=== PATIENT | female | born 1965 | race Caucasian/White ===

== ENCOUNTER 2018-07-25 09:50 | Outpatient (REF) | payer MEDICARE, MEDICAID, SELFPAY ==
[2018-07-25 13:21] LABS: Hemoglobin A1C 6.2 % (4.5-6.2)
[2018-07-25 13:23] LABS: ALT 66 U/L (12-78); AST 38 U/L (15-37); Albumin 3.5 g/dL (3.4-5.0); Alkaline Phosphatase 241 U/L (46-116); Anion Gap 10.4 mmol/L (3-11); BUN 15 mg/dL (7-18); Bilirubin, Total 0.3 mg/dL (0.2-1.0); CO2 27.6 mmol/L (21.0-32.0); CREATININE 0.93 mg/dL (0.55-1.02); Calcium 7.9 mg/dL (8.5-10.1); Chloride 103 mmol/L (98-107); Cholesterol 189 mg/dL (50-200); Glucose 126 mg/dL (70-100); HDL Cholesterol 48 mg/dL (40-60); LDL CHOLESTEROL 115 mg/dL (<100); Potassium 4.4 mmol/L (3.5-5.1); Sodium 141 mmol/L (136-145); Total Protein 6.5 g/dL (6.4-8.2); Triglyceride 134 mg/dL (30-150)
== END 2018-07-25 10:10 ==
LOC: NCHCN 09:50
PROVIDERS: PCP Nurse Practitioner Family; Visit Provider Nurse Practitioner Family
DX: E11.9 Type 2 diabetes mellitus without complications (principal)
CPT/HCPCS: 80053; 80061; 83721; 83036

== ENCOUNTER 2019-01-24 13:02 | Emergency (ER) | payer MEDICARE, MEDICAID, SELFPAY ==
[2019-01-24 13:06] VITALS: BP 155/86; PULSE 83; RESP 16; TEMP 36.5; O2SAT 96
--- NOTE | 2019-01-24 13:27 | ED.GENADUL_ITS ---
Discharge Plan Disposition Patient Disposition: HOME Condition: Stable Discharge Details Chief Complaint: Laceration Clinical Impression: Laceration Primary Care Provider: Jena Guzman ED Provider: Lisa Alatorre Home Meds and New Rx's Prescriptions: Continued trazodone 100 MG tablet 200 mg PO HS RF: 0 lisinopril 10 MG tablet 10 mg PO HS RF: 0 simvastatin 20 MG tablet 20 mg PO QPM RF: 0 omeprazole 20 MG capsule,delayed release(DR/EC) 20 mg PO HS RF: 0 montelukast 10 MG tablet 10 mg PO HS RF: 0 mirtazapine [Remeron] 15 MG tablet 15 mg PO HS RF: 0 ibuprofen 800 MG tablet 800 mg PO ONCE RF: 0 Advair Diskus 1 EACH blister with device 1 puff Inhalation BID RF: 0 albuterol sulfate [ProAir HFA] 8.5 GM HFA aerosol inhaler 2 puff Inhalation PRN RF: 0 metformin 500 MG tablet extended release 24hr 1,000 mg PO HS RF: 0 albuterol sulfate 2.5 MG/3 ML solution for nebulization 3 ml UPD Q3H PRN PRN (Reason: Shortness Of Breath) Qty: 20 RF: 0 Discharge Instructions Instructions: Laceration (ED), Skin Adhesive Care (ED) Additional Instructions: Please return to the emergency department immediately if you develop any new or worsening symptoms or if you become otherwise concerned. It is extremely important that you make an appointment to be seen in follow-up this visit as soon as possible by your primary care doctor. Referrals: Jena Guzman [Primary Care Provider] - Discharge Data Discharge Date/Time-TO BE ENTERED AT DEPARTURE: 01/24/19 14:35 Medical Decision Making Annemarie Pizano is a 53-year-old woman who presented to the emergency department with superficial laceration to her right fourth digit sustained using a kitchen mandolin. On exam patient is very well and nontoxic appearing. There is a very superficial laceration to the lateral aspect of the distal phalanx of her right fourth digit and no other injury. Full range of motion of the digit. The digit is neurovascularly intact. Exam/history is not consistent with bony injury, tendon injury. Plan for irrigation, Dermabond, tetanus (last tetanus 2008). Wound repaired by medical student with dermabond under my direct supervision. I had a lengthy discussion with the patient regarding return to emergency department precautions and importance of outpatient follow-up with her PCP. Patient verbalized understanding of the plan and is amenable. All questions were answered. Medical Records Medical records reviewed: Yes I reviewed the patient's medical records. HPI General Mode of arrival: ambulatory . Date/Time Provider Initiated Documentation: 01/24/19 13:27 . Limitations to Documentation: no limitations . Information obtained by: patient . HPI Narrative: Annemarie Pizano is a 53-year-old woman with history of hypertension, GERD, anxiety, high cholesterol presenting to the emergency department laceration. Patient reports that just prior to arrival she cut her right fourth digit while using a kitchen mandolin. She denies any other injury. She reports that there was minimal bleeding. Patient reports that her son has Asperger syndrome and was very concerned about her injury, and she came to the emergency department to calm him down but otherwise would not have sought medical attention. She denies any pain. Patient reports that she is previously in her usual state of health. Related Data Home Medications Medication Instructions Recorded Confirmed lisinopril 10 mg PO HS 06/02/13 01/24/19 trazodone 200 mg PO HS 06/02/13 01/24/19 mirtazapine [Remeron] 15 mg PO HS 07/12/13 01/24/19 montelukast 10 mg PO HS 07/12/13 01/24/19 omeprazole 20 mg PO HS 07/12/13 01/24/19 simvastatin 20 mg PO QPM 07/12/13 01/24/19 ibuprofen 800 mg PO ONCE 11/01/13 01/24/19 Advair Diskus 1 puff INHALATION BID 06/19/14 01/24/19 albuterol sulfate [ProAir HFA] 2 puff INHALATION PRN 06/19/14 01/24/19 metformin 1,000 mg PO HS 10/25/16 01/24/19 albuterol sulfate 3 ml UPD Q3H PRN PRN #20 vial 02/14/17 01/24/19 Previous Rx's Medication Instructions Recorded albuterol sulfate 3 ml UPD Q3H PRN PRN #20 vial 02/14/17 Allergies Allergy/AdvReac Type Severity Reaction Status Date / Time latex Allergy Intermediate Skin Rash Unverified 01/24/19 13:08 miconazole [From Monistat 3] Allergy Unknown increased Unverified 01/24/19 13:08 vaginal itching General Stated Complaint: Laceration BENTLEY: 4 Review of Systems Review of Systems Constitutional: denies fevers Eyes: denies eye pain ENT: denies facial pain, dental pain, sore throat Cardiovascular: denies chest pain Respiratory: denies SOB GI: denies abdominal pain, vomiting, diarrhea : denies flank pain MSK: denies back pain, neck pain, arthralgias, myalgias Skin: Reports wound as per HPI Neuro: denies headaches, numbness, weakness PFSH Surgical History Colonoscopy - IV Sedation (10/25/16) Shoulder Manipulation Social History Smoking/Tobacco Use Status: Current every day Drug use: Never Do you feel safe in your relationship?: Yes Exam Narrative Exam Narrative: Constitutional: well and [id number], pleasant, conversing normally HENT: head atraumatic/normocephalic/normal inspection, mucous membranes moist Eyes: conjunctiva normal, sclera normal, pupils 3mm b/l Neck: no stridor, normal ROM, trachea midline Resp: normal work of breathing Cardio: normal rate, normal rhythm Skin: warm, dry, normal color, no rash Neuro: alert, not altered, grossly non-focal, normal tone Ext: Right fourth digit with very superficial laceration to the lateral aspect of the distal phalanx, no bleeding. Brisk cap refill. Does not cross the joint. Sensation intact. Psych: normal mood, normal affect, normal behavior Course Vital Signs Temperature 36.5 C 01/24/19 13:06 Pulse 83 01/24/19 13:06 Respiratory Rate 16 01/24/19 13:06 Blood Pressure 155/86 H 01/24/19 13:06 Pulse Oximetry 96 01/24/19 13:06 Temperature 36.5 C 01/24/19 13:06 Temperature Source Temporal Artery Scan 01/24/19 13:06 Pulse 83 01/24/19 13:06 Respiratory Rate 16 01/24/19 13:06 Respiratory Effort Non-Labored 01/24/19 13:07 Blood Pressure 155/86 H 01/24/19 13:06 Pulse Oximetry 96 01/24/19 13:06 Oxygen Delivery Method Room Air 01/24/19 13:06 Oxygen Flow Rate 0 01/24/19 13:06 Pain Level 7 01/24/19 13:06 Procedures Laceration Laceration 1: Site: hand Description: linear Depth: simple, single layer Pre-repair: irrigated extensively (Under pressure)
== END 2019-01-24 14:35 | disposition home or self-care (01) ==
PROVIDERS: Emergency Provider Student in an Organized Health Care Education/Training Program; PCP Nurse Practitioner Family
DX: S61.218A Laceration without foreign body of other finger without damage to nail, initial encounter (principal); W26.8XXA Contact with other sharp object(s), not elsewhere classified, initial encounter; E11.9 Type 2 diabetes mellitus without complications; I10 Essential (primary) hypertension; F17.210 Nicotine dependence, cigarettes, uncomplicated
CPT/HCPCS: 12001; 90471

== ENCOUNTER 2019-07-26 11:51 | Outpatient (REF) | payer MEDICARE, MEDICAID, SELFPAY ==
--- NOTE | 2019-07-26 10:45 | PAPFT_PTH ---
PATIENT: Annemarie Pizano LOC: [facility] U#:[id number] AGE/SX: 54/F ROOM: RE07/26/[address]: Bonilla Reyes : 1965 BED: DIS: 07/26/2019 SPEC #: [id number] RECD: 07/27/19 13:03 STATUS: LI RECarlton #: [id number] KATEY: 07/26/19 10:[address]: Bonilla Reyes DEPT: [facility] Cytology RECD BY: Trinity Sy Tissues: 1 - CX/ENDOCX FOR PAP SMEARS Procedures: PAP THIN PREP/UVM Screening HPV DNA PROBE Comments: [id number]
== END 2019-07-26 12:11 ==
LOC: NCHCN 11:51
PROVIDERS: PCP Nurse Practitioner Family; Visit Provider Nurse Practitioner Family
DX: Z12.4 Encounter for screening for malignant neoplasm of cervix (principal); Z11.51 Encounter for screening for human papillomavirus (HPV)
CPT/HCPCS: 88142; 87624

== ENCOUNTER 2019-08-08 08:54 | Outpatient (CLI) | payer MEDICARE, MEDICAID, SELFPAY ==
[2019-08-08 09:17] LABS: HCT 40.9 % (36.0-46.0); Mean Corp. HGB Concentration 31.8 g/dL (32.0-36.0); Mean Corpuscular Hemoglobin 29.4 pg (27.0-33.0); Mean Corpuscular Volume 92.5 fL (80-95); Mean Platelet Volume 9.9 fL (8.0-11.0); Platelet Count 209 x1000/uL (130-400); RBC 4.42 m/cumm (4.00-5.20); RBC Distribution Width 13.4 % (11.7-14.6); White Blood Cell Count 8.47 k/cumm (4.4-10.8)
[2019-08-08 09:27] LABS: Bilirubin Negative (Negative); Blood Negative (Negative); Clarity Clear (Clear); Glucose Negative (Negative); Ketones Negative (Negative); Leukocyte Esterase Trace (Negative); Nitrite Negative (Negative); Urobilinogen 0.2 EU/dL (Up TO 0.2); pH 5.5 (5-8)
[2019-08-08 10:04] LABS: PROTEIN 35.5 mg/dL
[2019-08-08 10:07] LABS: COMMENT (LAB VIEW ONLY) 124.11 mg/dL; Microalb ug/mg Crea 63.5 ug/mg Cr
[2019-08-08 10:08] LABS: ALT 113 U/L (14-59); AST 55 U/L (15-37); Albumin 3.7 g/dL (3.4-5.0); Alkaline Phosphatase 254 U/L (46-116); Anion Gap 9.8 mmol/L (3-11); BUN 16 mg/dL (7-18); Bilirubin, Total 0.4 mg/dL (0.2-1.0); CO2 29.2 mmol/L (21.0-32.0); CREATININE 0.73 mg/dL (0.55-1.02); Calcium 8.3 mg/dL (8.5-10.1); Calculated LDL 128 mg/dL; Chloride 103 mmol/L (98-107); Cholesterol 207 mg/dL (50-200); Glucose 115 mg/dL (70-100); HDL Cholesterol 51 mg/dL (40-60); Potassium 4.5 mmol/L (3.5-5.1); Sodium 142 mmol/L (136-145); Triglyceride 141 mg/dL (30-150)
[2019-08-08 10:11] LABS: COMMENT (LAB VIEW ONLY) 125.75 mg/dL; Prot/Crea Ur Ratio 0.28
[2019-08-08 10:12] LABS: Bacteria Few HPF (Negative); C & S Indicated? No/Sq. Contamination; Casts Negative LPF (Negative); Crystals Negative HPF (Negative); Epithelial Cells Moderate HPF (Negative); Mucus Negative (Negative); RBC 0-2 (0-2)
== END 2019-08-08 09:14 ==
PROVIDERS: PCP Nurse Practitioner Family; Visit Provider Nurse Practitioner Family
DX: E11.9 Type 2 diabetes mellitus without complications (principal); I10 Essential (primary) hypertension; E78.5 Hyperlipidemia, unspecified
CPT/HCPCS: 36415; 80053; 80061; 85027; 81003; 81015; 82043; 82565; 82570; 84156

== ENCOUNTER 2019-09-18 01:46 | Outpatient (CLI) | payer MEDICARE, MEDICAID, SELFPAY ==
--- NOTE | 2019-09-18 13:23 | DI.MAMMO_ITS ---
EXAM: MG MAMMO SCREENING CLINICAL HISTORY: SCREENING, [facility],Z00.00 TECHNIQUE: Bilateral full field digital CC and MLO mammographic images were obtained with 3D tomosyn thesis and utilizing computer aided detection (CAD). COMPARISON: Available for comparison. FINDINGS: Masses/Architectural Distortion: None seen. Microcalcifications: No suspicious pleomorphic-type are seen. Skin Thickening/Nipple Retraction: None. IMPRESSION: 1. No significant interval change with no specific features of malignancy noted. 2. Unless there is more urgent need, screening mammography is recommended, as per [place] [employer] guidelines. ACR BI-RAD Category- 1 Negative Breast Density - Category B - Scattered areas of fibroglandular density A negative radiographic report should not delay biopsy if a dominant or clinically suspicious mass is present. Up to ten percent of cancers are not identified on mammography. A negative report may reinforce clinical impression. Adenosis and dense breasts may obscure an underlying neoplasm. False positive reports average 6 to 10%.
== END 2019-09-18 02:06 ==
PROVIDERS: PCP Nurse Practitioner Family; Visit Provider Nurse Practitioner Family
DX: Z12.31 Encounter for screening mammogram for malignant neoplasm of breast (principal)
CPT/HCPCS: 77063; 77067

== ENCOUNTER 2020-01-25 15:12 | Outpatient (REF) | payer MEDICARE, MEDICAID, SELFPAY ==
[2020-01-25 19:47] LABS: Calculated LDL 111 mg/dL (<100); Cholesterol 187 mg/dL (<200); HDL Cholesterol 43 mg/dL (40-60); Triglyceride 168 mg/dL (<150)
[2020-01-28 11:38] LABS: HIV-1/2 Ag & Ab Screen Negative (Negative)
== END 2020-01-25 15:32 ==
LOC: NCHCN 15:12
PROVIDERS: PCP Nurse Practitioner Family; Visit Provider Nurse Practitioner Family
DX: E11.9 Type 2 diabetes mellitus without complications (principal); E78.5 Hyperlipidemia, unspecified; Z11.4 Encounter for screening for human immunodeficiency virus [HIV]
CPT/HCPCS: 80061; 87389

== ENCOUNTER 2020-08-28 15:06 | Outpatient (REF) | payer MEDICARE, MEDICAID, SELFPAY ==
[2020-08-28 16:05] LABS: HCT 37.2 % (36.0-46.0); HGB 12.3 g/dL (11.2-15.7); MCH 29.7 pg (27.0-33.0); MCHC 33.1 % (32.0-36.0); MCV 89.9 fL (80-95); MPV 10.6 fL (8.0-11.0); Platelet Count 208 10^3/uL (130-400); RBC 4.14 10^6/uL (3.93-5.22); RDW 13.3 % (11.7-14.6); RDW-SD 43.8 fL
[2020-08-28 17:22] LABS: ALT 87 U/L (14-59); AST 46 U/L (15-37); Albumin 4.1 g/dL (3.4-5.0); Alkaline Phosphatase 251 U/L (46-116); BUN 15 mg/dL (7-18); Bilirubin, Total 0.6 mg/dL (0.2-1.0); Calcium 8.1 mg/dL (8.5-10.1); Calculated LDL 102 mg/dL (<100); Chloride 101 mmol/L (98-107); Cholesterol 180 mg/dL (<200); Glucose 130 mg/dL (74-106); HDL Cholesterol 46 mg/dL (40-60); Sodium 140 mmol/L (136-145); Total Protein 7.1 g/dL (6.4-8.2); Triglyceride 163 mg/dL (<150)
== END 2020-08-28 15:26 ==
LOC: NCHCN 15:06
PROVIDERS: PCP Nurse Practitioner Family; Visit Provider Nurse Practitioner Family
DX: I10 Essential (primary) hypertension (principal); E78.5 Hyperlipidemia, unspecified; E11.9 Type 2 diabetes mellitus without complications; R94.5 Abnormal results of liver function studies; Z68.30 Body mass index [BMI] 30.0-30.9, adult
CPT/HCPCS: 80053; 80061; 85027

== ENCOUNTER 2020-09-11 01:44 | Outpatient (CLI) | payer MEDICARE, MEDICAID, SELFPAY ==
--- NOTE | 2020-09-11 | DI.CTLCSR_ITS ---
EXAM: CT CHEST LUNG CANCER SCREEN CLINICAL HISTORY: SCREENING FOR LUNG CA, [employer]MER [employer], Z87.891 TECHNIQUE: Imaging Protocol: Axial computed tomography images with coronal and sagittal reformatted images were created and reviewed COMPARISON: CT NECK AND CHEST WITH CONTRAST from 04/07/2017 FINDINGS: Tracheobronchial tree: Patent where visualized. Mediastinum and Jennifer: No dominant adenopathy or fluid collection. Pulmonary parenchyma: No consolidation or dominant measurable mass. Mild scarring greatest in the upp er lobes. No significant emphysematous changes. Lung Nodules: None. Pleura: No effusion or pneumothorax. Heart: The heart is not dilated. Minimal coronary artery calcifications are seen. Aorta: Thoracic aorta non-dilated. Upper abdomen: Unremarkable. Bones: Mild degenerative disc changes. Soft Tissues: Unremarkable. IMPRESSION: Mild apical scarring. Lung RADS Cat 1 - Negative: No nodules and definitely benign nodules Lung-RADS 1.0 CATEGORIES: Category 0 - Prior chest CT exam(s) being located for comparison. Category 1 - Annual screening in 12 months. No nodules or definitely benign nodules. Category 2 - Annual screening in 12 months. Benign appearance. Nodules with low likelihood of becomin g active cancer. Category 3 - 6-month follow-up. Probably benign. Short-term follow-up suggested. Nodules with low lik elihood of becoming active cancer. Category 4A - 3-month follow-up and CT/PET if >8 mm in size. Suspicious finding. Findings which requi re additional testing. Category 4B - Findings which require additional testing and tissue sampling. Suspicious finding. C Added to Any of the Above - History of prior lung cancer screening. S Added to Any of the Above - Significant unexpected other finding. RADIATION DOSE DELIVERED: 72.22mGy.cm Total DLP DATA REPOSITORY: All CT scans at this facility are submitted to the National Radiology Data Registry (NRDR) Dose Index Registry (DIR) with the [employer] (ACR). RADIATION OPTIMIZATION: All CT scans at this facility use at least one of these dose optimization te chniques: automated exposure control; mA and/or kV adjustment per patient size (includes targeted exa ms where dose is matched to clinical indication); or iterative reconstruction.
== END 2020-09-11 02:04 ==
PROVIDERS: PCP Nurse Practitioner Family; Visit Provider Nurse Practitioner Family
DX: Z87.891 Personal history of nicotine dependence (principal)
CPT/HCPCS: G0297

== ENCOUNTER 2020-10-20 00:54 | Outpatient (CLI) | payer MEDICARE, MEDICAID, SELFPAY ==
--- NOTE | 2020-10-20 | DI.MRI_ITS ---
EXAM: MR LUMBAR SPINE WO INDICATION: FAILED PT, SCIATICA, M54.30. COMPARISON: No exams were available for comparison TECHNIQUE: MR examination of the lumbosacral spine was performed according to the usual protocol. FINDINGS: Lumbosacral spine MRI was performed according to the usual protocol. No bony signal abnormality seen . Conus medullaris appears intact. Intervertebral disc signal appears intact except for some loss of disc signal at L5-S1. There is a b road-based central and left paracentral disc herniation at L5-S1 without evident focal neural impinge ment. No evidence of neural foraminal stenosis or central canal spinal stenosis at this level. The remainder of the lower thoracic and lumbar spine is unremarkable in appearance with no disc herni ation, central canal spinal stenosis, or neural foraminal stenosis. IMPRESSION: Moderate-sized central and left lateral broad-based disc herniation at L5-S1, no gross neural impinge ment identified.
== END 2020-10-20 01:14 ==
PROVIDERS: PCP Nurse Practitioner Family; Visit Provider Nurse Practitioner Family
DX: M51.17 Intervertebral disc disorders with radiculopathy, lumbosacral region (principal)
CPT/HCPCS: 72148

== ENCOUNTER 2020-10-21 18:50 | Outpatient (REF) | payer MEDICARE, MEDICAID, SELFPAY ==
[2020-10-21 21:36] LABS: Clarity Clear (Clear)
[2020-10-21 21:37] LABS: Leukocyte Esterase Negative (Negative); Nitrite Negative (Negative); Specific Gravity >= 1.030 (1.005-1.025)
[2020-10-21 21:38] LABS: Bilirubin Negative (Negative); Blood Negative (Negative); Glucose Negative (Negative); Ketones Negative (Negative); Urobilinogen 0.2 EU/dL (Up TO 0.2)
[2020-10-21 21:40] LABS: Bacteria Few HPF (Negative); C & S Indicated? No/Sq. Contamination; Casts Negative LPF (Negative); Crystals Negative HPF (Negative); Epithelial Cells Moderate HPF (Negative); Mucus Negative (Negative); RBC Negative HPF (0-2)
== END 2020-10-21 19:10 ==
LOC: NCHCN 18:50
PROVIDERS: PCP Nurse Practitioner Family; Visit Provider Nurse Practitioner Family
DX: R80.9 Proteinuria, unspecified (principal); L29.8 Other pruritus
CPT/HCPCS: 81003; 81015; 87480; 87510; 87660

== ENCOUNTER 2020-10-30 13:57 | Outpatient (REF) | payer MEDICARE, MEDICAID, SELFPAY ==
[2020-10-30 18:30] LABS: Bilirubin Negative (Negative); Blood Negative (Negative); Clarity Cloudy (Clear); Glucose 250 mg/dL (Negative); Ketones Negative (Negative); Leukocyte Esterase Negative (Negative); Nitrite Negative (Negative); Specific Gravity >= 1.030 (1.005-1.025); Urobilinogen 0.2 EU/dL (Up TO 0.2)
[2020-10-30 18:43] LABS: Bacteria Rare HPF (Negative); Epithelial Cells Negative HPF (Negative); RBC 0-2 HPF (0-2); WBC 0-2 HPF (0-5)
[2020-10-30 18:44] LABS: C & S Indicated? No; Casts Negative LPF (Negative); Crystals Many Amorphous HPF (Negative); Mucus Trace (Negative)
== END 2020-10-30 14:17 ==
LOC: NCHCN 13:57
PROVIDERS: PCP Nurse Practitioner Family; Visit Provider Nurse Practitioner Family
DX: R80.9 Proteinuria, unspecified (principal)
CPT/HCPCS: 81003; 81015

== ENCOUNTER 2020-11-07 17:14 | Outpatient (REF) | payer MEDICARE, MEDICAID, SELFPAY ==
[2020-11-07 14:49] LABS: Bilirubin Negative (Negative); Blood Moderate (Negative); Clarity Cloudy (Clear); Glucose Negative (Negative); Ketones Negative (Negative); Leukocyte Esterase Small (Negative); Nitrite Negative (Negative); Specific Gravity >= 1.030 (1.005-1.025); Urobilinogen 0.2 EU/dL (Up TO 0.2); pH 5.5 (5-8)
[2020-11-07 15:11] LABS: WBC >50 HPF (0-5)
[2020-11-07 15:12] LABS: Bacteria Moderate HPF (Negative); C & S Indicated? No/Sq. Contamination; Epithelial Cells Many HPF (Negative)
== END 2020-11-07 17:34 ==
LOC: NCHCN 17:14
PROVIDERS: PCP Nurse Practitioner Family; Visit Provider Nurse Practitioner Family
DX: R80.9 Proteinuria, unspecified (principal)
CPT/HCPCS: 81003; 81015; 87086

== ENCOUNTER 2020-12-09 12:53 | Outpatient (REF) | payer MEDICARE, MEDICAID, SELFPAY ==
[2020-12-09 14:48] LABS: PROTEIN 10.4 mg/dL
[2020-12-09 14:49] LABS: COMMENT (LAB VIEW ONLY) 36.65 mg/dL; Prot/Crea Ur Ratio 0.28
[2020-12-09 14:51] LABS: Microalb ug/mg Crea 151.9 ug/mg Cr
[2020-12-09 18:26] LABS: HCT 36.8 % (36.0-46.0); HGB 11.9 g/dL (11.2-15.7); MCH 28.5 pg (27.0-33.0); MCHC 32.3 % (32.0-36.0); MCV 88.2 fL (80-95); MPV 11.1 fL (8.0-11.0); Platelet Count 191 10^3/uL (130-400); RBC 4.17 10^6/uL (3.93-5.22); RDW 13.8 % (11.7-14.6); WBC 9.76 10^3/uL (4.4-10.8)
[2020-12-09 18:54] LABS: Hemoglobin A1C 7.6 % (<5.7)
== END 2020-12-09 13:13 ==
LOC: NCHCN 12:53
PROVIDERS: PCP Nurse Practitioner Family; Visit Provider Nurse Practitioner Family
DX: E11.9 Type 2 diabetes mellitus without complications (principal); I10 Essential (primary) hypertension; R94.5 Abnormal results of liver function studies
CPT/HCPCS: 85027; 82043; 82565; 82570; 83036; 84156

== ENCOUNTER 2021-01-09 18:37 | Outpatient (REF) | payer MEDICARE, MEDICAID, SELFPAY ==
[2021-01-09 16:17] LABS: ALT 124 U/L (14-59); AST 45 U/L (15-37); Alkaline Phosphatase 289 U/L (46-116); Anion Gap 12.6 mmol/L (3-11); BUN 17 mg/dL (7-18); Bilirubin, Total 0.5 mg/dL (0.2-1.0); CO2 27.4 mmol/L (21.0-32.0); CREATININE 0.9 mg/dL (0.55-1.02); Calcium 8.5 mg/dL (8.5-10.1); Chloride 98 mmol/L (98-107); Glucose 173 mg/dL (74-106); Potassium 4.1 mmol/L (3.5-5.1); Sodium 138 mmol/L (136-145); Total Protein 7.5 g/dL (6.4-8.2)
== END 2021-01-09 18:38 | disposition home or self-care (01) ==
LOC: NCHCN 18:37
PROVIDERS: PCP Nurse Practitioner Family; Visit Provider Nurse Practitioner Family
DX: R94.5 Abnormal results of liver function studies (principal)
CPT/HCPCS: 80053

== ENCOUNTER 2021-02-26 18:28 | Outpatient (REF) | payer MEDICARE, MEDICAID, SELFPAY ==
[2021-02-26 17:52] LABS: Anion Gap 9.1 mmol/L (3-11); BUN 20 mg/dL (7-18); CO2 29.9 mmol/L (21.0-32.0); CREATININE 0.9 mg/dL (0.55-1.02); Calcium 8.6 mg/dL (8.5-10.1); Chloride 101 mmol/L (98-107); Glucose 178 mg/dL (74-106); Potassium 3.8 mmol/L (3.5-5.1); Sodium 140 mmol/L (136-145)
[2021-02-26 18:06] LABS: Hemoglobin A1C 8.7 % (<5.7)
== END 2021-02-26 18:29 | disposition home or self-care (01) ==
LOC: NCHCN 18:28
PROVIDERS: PCP Nurse Practitioner Family; Visit Provider Nurse Practitioner Family
DX: E11.9 Type 2 diabetes mellitus without complications (principal)
CPT/HCPCS: 80048; 83036

== ENCOUNTER 2021-06-05 03:08 | Outpatient (CLI) | payer MEDICARE, MEDICAID, SELFPAY ==
--- NOTE | 2021-06-05 | DI.US_ITS ---
APPROVED REPORT EXAM: Comprehensive 2D, Doppler, and color-flow Echocardiogram Patient Location: Out-Patient Supervisor Transcribing Operators: Sonia Rivera RDCS (AE) Indications: Irregular pulse, Murmur Other Information Study Quality: Adequate Conclusion Left Ventricle : The left ventricle is normal size. Left ventricular systolic function is normal. The re is normal left ventricular wall thickness. There is normal LV segmental wall motion. The left vent ricular diastolic function is normal. LVEF is 54%. Right Ventricle : The right ventricle is normal size. The right ventricular systolic function is norm al. The RVSP is 30 mmHg. Atria : The left atrium size is normal. The right atrium size is normal. Aortic Valve : Aortic valve is calcified. Aortic valve is probably trileaflet. Trace aortic regurgita tion. Mild aortic stenosis. Peak aortic valve gradient is 34mmHg. Highest mean aortic valve gradient is 18mmHg. Calculated LEVY by the continuity equation is 1.25cm2. Mitral Valve : Mild mitral annular calcification. Trace to mild mitral regurgitation. No evidence of mitral valve stenosis. Great Vessels : The aortic root is normal in size. The ascending aorta is normal in size. Aortic arch is not well visualized. IVC is normal in size and collapses >50% with inspiration. Wall motion Left Ventricle The left ventricle is normal size. Left ventricular systolic function is normal. There is normal left ventricular wall thickness. There is normal LV segmental wall motion. The left ventricular diastolic function is normal. There is no ventricular septal defect visualized. LVEF is 54%. Right Ventricle The right ventricle is normal size. The right ventricular systolic function is normal. The RVSP is 30 .2 mmHg. Atria The left atrium size is normal. The right atrium size is normal. The interatrial septum is intact wit h no evidence for an atrial septal defect. Aortic Valve Aortic valve is calcified. Aortic valve is probably trileaflet. Mild aortic stenosis. Peak aortic lisa ve gradient is 34.4mmHg. Highest mean aortic valve gradient is 18.4mmHg. Calculated LEVY by the contin uity equation is 1.25_cm2. Trace aortic regurgitation. Mitral Valve Mild mitral annular calcification. No evidence of mitral valve stenosis. Trace to mild mitral regurgi tation. Tricuspid Valve The tricuspid valve is normal in structure. There is no tricuspid valve stenosis. Trace to mild tricu spid regurgitation. Pulmonic Valve The pulmonary valve is normal in structure. There is no pulmonic valvular stenosis. There is no pulmo bridgette valvular regurgitation. Great Vessels The aortic root is normal in size. The ascending aorta is normal in size. Aortic arch is not well vis ualized. IVC is normal in size and collapses >50% with inspiration. Pericardium There is no pericardial effusion. 2D Dimensions IVSD d PLAX 1.02 cm F: 0.6-1.0 LV Vol A2C d MOD 86.6 mL LVPW d PLAX 1.02 cm F: 0.6 - 1.0 LV Vol A4C d MOD 83.6 mL LVID d PLAX 4.02 cm F: 3.8 - 5.2 LA vol/ BSA A2C s A-L 19.4 mL/m2 LVDs 2.90 cm F: 2.2 - 3.5 LA vol/ BSA A4C s A-L 15.8 mL/m2 Ao Root d 2.46 cm F: 2.7 - 3.3 LA Vol/ BSA Biplane s A-L 18.0 mL/m2 RA Area A4C 12.07 cm2 LA Area A4C s MOD 13.46 cm2 RA Vol/ BSA A4C s A-L 13.8 mL/m2 LA Area A2C s MOD 15.32 cm2 Ao Asc Diam d 2.77 cm F: 2.3 - 3.1 LV EF A4C MOD 54.1 % LV EF Teichholz 53.9 % LV EF A2C MOD 55.5 % LVEF (Vergara's) 53.41 % F: 54 - 74 LV EF Biplane MOD 53.4 % LV Volume 65.90 mL F: 46 - 106 SV 46.37 mL LV Volume Index 34.14 mL/m2 F: 29 - 61 SV Index 24.02 mL/m2 LV Vol Biplane MOD 86.8 mL FS 27.40 % M-Mode TAPSE 1.67 cm (M/F) >1.7 LV Diastology MV E' medial 0.090 (>0.07 m/s) E/A Ratio 1.6 LV E/e MED 13.90 (<14) MV E Vmax 1.26 (0.4-1.3 m/s) MV E' lateral 0.095 (>0.1 m/s) MV A Vmax 0.80 (0.4-1.3 m/s) LV E/e LAT 13.15 (<14) MV E/A Ratio 1.51 MV E/E' medial 13.91 MV E/E' lateral 13.20 Aortic Valve LVOT Area 2.75 cm2 AoV Area Vmax 1.25 cm2 LVOT Vmax 1.33 m/s AoV Area/ BSA (Vmax) 0.65 cm2/m2 LVOT Mean Aurelio. 0.88 m/s LEVY Mean Aurelio. 1.21 cm2 LVOT Peak Grad 7.1 mmHg LEVY Mean Aurelio. Index 0.63 cm2/m2 LVOT Mean Grad 3.8 mmHg AR DT 1883 msec LVOT VTI 0.243 m AR PHT 546 msec LVOT Diam s 1.85 cm AoV Vmax 2.93 m/s Velocity Ratio 0.45 AoV Mean Aurelio. 1.99 m/s AoV Peak Grad 34.4 mmHg LVOT SV 66.84 mL AoV Mean Grad 18.4 mmHg AoV VTI 0.519 m AoV Area VTI 1.29 cm2 AoV Area/ BSA (VTI) 0.67 cm/m2 Mitral Valve MV DT 339 (160-240 msec) MR Vmax 5.08 m/s MV PHT 98 msec MR VTI 1.408 m MV Area PHT 2.24 cm2 MR Peak Grad 103.4 mmHg MV VTI 0.254 m MR Mean Grad 75.7 mmHg MV VTI Annulus 0.261 m MV Area VTI 2.71 (4.0-6.0 cm2) Pulmonary Valve PV Vmax 1.48 (0.5-1.5 m/s) RVOT Peak Gr. 3.05 mmHg PV Peak Grad 8.8 mmHg RVOT Mean Gr. 1.55 mmHg PV Mean Grad 4.3 mmHg RVOT VTI 0.151 m PV VTI 0.283 m RVOT Vmax 0.87 m/s Tricuspid Valve TR Peak Grad 27.1 mmHg TR Vmax 2.61 m/s RA Pressure 3.00 mmHg RVSP (TR) 30.2 mmHg
== END 2021-06-05 03:28 ==
PROVIDERS: PCP Nurse Practitioner Family; Visit Provider Nurse Practitioner Family
DX: R01.1 Cardiac murmur, unspecified (principal); I49.9 Cardiac arrhythmia, unspecified; I08.0 Rheumatic disorders of both mitral and aortic valves
CPT/HCPCS: 93306

== ENCOUNTER 2021-06-12 19:15 | Outpatient (REF) | payer MEDICARE, MEDICAID, SELFPAY | END 2021-06-12 19:16 | disposition home or self-care (01) | LOC: LBN 19:15 | PROVIDERS: PCP Nurse Practitioner Family; Visit Provider Obstetrics & Gynecology | DX: N89.8 Other specified noninflammatory disorders of vagina (principal) | CPT/HCPCS: 87480; 87510; 87660 ==

== ENCOUNTER 2021-09-17 18:14 | Outpatient (REF) | payer MEDICARE, MEDICAID, SELFPAY | END 2021-09-17 18:15 | disposition home or self-care (01) | LOC: LBN 18:14 | PROVIDERS: PCP Nurse Practitioner Family; Visit Provider Obstetrics & Gynecology | DX: N89.8 Other specified noninflammatory disorders of vagina (principal) | CPT/HCPCS: 87480; 87510; 87660 ==

== ENCOUNTER 2022-02-12 19:48 | Outpatient (REF) | payer MEDICARE, MEDICAID, SELFPAY ==
[2022-02-12 20:11] LABS: Hemoglobin A1C 7.7 % (<5.7)
[2022-02-12 20:12] LABS: ALT 71 U/L (14-59); AST 31 U/L (15-37); Albumin 4.5 g/dL (3.4-5.0); Alkaline Phosphatase 194 U/L (46-116); Anion Gap 12.2 mmol/L (3-11); BUN 18 mg/dL (7-18); Bilirubin, Total 0.4 mg/dL (0.2-1.0); CO2 25.8 mmol/L (21.0-32.0); CREATININE 0.8 mg/dL (0.55-1.02); Chloride 103 mmol/L (98-107); Glucose 164 mg/dL (74-106); Sodium 141 mmol/L (136-145); Total Protein 7.8 g/dL (6.4-8.2)
== END 2022-02-12 19:49 | disposition home or self-care (01) ==
LOC: LBN 19:48
PROVIDERS: PCP Nurse Practitioner Family; Visit Provider Nurse Practitioner Family
DX: E11.9 Type 2 diabetes mellitus without complications (principal); I10 Essential (primary) hypertension; E78.5 Hyperlipidemia, unspecified; R94.5 Abnormal results of liver function studies
CPT/HCPCS: 80053; 83036

== ENCOUNTER 2022-02-26 13:38 | Outpatient (REF) | payer MEDICARE, MEDICAID, SELFPAY ==
[2022-02-26 16:13] LABS: Calculated LDL 92 mg/dL (<100); Cholesterol 172 mg/dL (<200); HDL Cholesterol 45 mg/dL (40-60); Triglyceride 177 mg/dL (<150)
== END 2022-02-26 13:39 | disposition home or self-care (01) ==
LOC: NCHCN 13:38
PROVIDERS: PCP Nurse Practitioner Family; Visit Provider Nurse Practitioner Family
DX: E78.5 Hyperlipidemia, unspecified (principal)
CPT/HCPCS: 80061

== ENCOUNTER 2022-03-12 00:20 | Outpatient (CLI) | payer MEDICARE, MEDICAID, SELFPAY ==
--- NOTE | 2022-03-12 | DI.MAMMO_ITS ---
Exam(s) MAMMO SCREENING EXAM: MAMMO SCREENING CLINICAL HISTORY: SCREENING, Z12.39 TECHNIQUE: Mammograms were interpreted according to the usual protocol including computer analysis w [employer] CAD system, tomosynthesis and C-view imaging. COMPARISON: 2012 through 2018 FINDINGS: The breasts are composed of scattered fibroglandular densities, Breast Density category B. No suspicious masses or suspicious microcalcifications are seen. No skin thickening or abnormal axillary lymph nodes are seen. There has been no significant change from prior exams. IMPRESSION: BI-RADS Category 1, Negative mammogram Yearly screening mammography is recommended. Breast Density - Category B, scattered fibroglandular densities. A negative radiographic report should not delay biopsy if a dominant or clinically suspicious mass is present. Up to ten percent of cancers are not identified on mammography. A negative report may reinforce clinical impression. Adenosis and dense breasts may obscure an underlying neoplasm. False positive reports average 6 to 10%. Patient will receive a letter notifying them of these results.
== END 2022-03-12 00:40 ==
PROVIDERS: PCP Nurse Practitioner Family; Visit Provider Nurse Practitioner Family
DX: Z12.31 Encounter for screening mammogram for malignant neoplasm of breast (principal)
CPT/HCPCS: 77063; 77067

== ENCOUNTER 2022-08-09 14:10 | Outpatient (REF) | payer MEDICARE, MEDICAID, SELFPAY ==
--- NOTE | 2022-08-09 11:55 | PAPFT_PTH ---
PATIENT: Annemarie Pizano LOC: [facility] U#:[id number] AGE/SX: 57/F ROOM: RE08/09/[address]: Malathi Barnhart MD : 1965 BED: DIS: 08/09/2022 SPEC #: [id number] RECD: 08/09/22 17:05 STATUS: LI RECarl[place] #: [id number] KATEY: 08/09/22 11:[address]: Malathi Barnhart DEPT: [facility] Cytology RECD BY: Trinity Sy ENTERED: 08/09/22 17:05 SP TYPE: PAPFT OTHR DR: Luisa Bell Tissues: 1 - CX/ENDOCX FOR PAP SMEARS Procedures: PAP THIN PREP/UVM Screening HPV DNA PROBE Comments: [id number]
== END 2022-08-09 14:11 | disposition home or self-care (01) ==
LOC: LBN 14:10
PROVIDERS: PCP Nurse Practitioner Family; Visit Provider Obstetrics & Gynecology
DX: Z12.4 Encounter for screening for malignant neoplasm of cervix (principal); Z11.51 Encounter for screening for human papillomavirus (HPV); R87.610 Atypical squamous cells of undetermined significance on cytologic smear of cervix (ASC-US); Z01.419 Encounter for gynecological examination (general) (routine) without abnormal findings
CPT/HCPCS: 88142; 87624

== ENCOUNTER → 2023-02-14 09:48 | Outpatient (BNVA) | payer MEDICARE, MEDICAID, SELFPAY | PROVIDERS: PCP Nurse Practitioner Family; Referring Provider Nurse Practitioner Family; Visit Provider Surgery | DX: Z12.11 Encounter for screening for malignant neoplasm of colon (principal); D12.6 Benign neoplasm of colon, unspecified | CPT/HCPCS: 99242 ==

== ENCOUNTER 2023-03-04 06:04 | Day surgery (SDC) | payer MEDICARE, MEDICAID, SELFPAY ==
--- NOTE | 2023-03-03 20:02 | PDOC.DSDIS_ITS ---
Date of service: 03/04/23 Time of Service: 09:10 Discharge Plan Disposition Patient Disposition: Home Condition: Good Discharge Details Reason For Visit: Colon scope/ colon cancer screening Attending Provider: Grace Mccloud Primary Care Provider: Luisa Bell Home Meds and New Rx's Prescriptions: Continued metformin 500 mg tablet 500 mg PO .am Jardiance 25 mg tablet 25 mg PO DAILY fluconazole [Diflucan] 150 mg tablet 150 mg PO ONCE Qty: 2 2RF Rx Instructions: Take one tablet today and the other in 3 days simvastatin 20 mg tablet 40 mg PO QHS omeprazole 20 mg capsule,delayed release(DR/EC) 40 mg PO HS montelukast [Singulair] 10 mg tablet 10 mg PO QHS nicotine (polacrilex) [Nicorette] 4 mg Gum 4 mg BUCCAL DIRECTED Rx Instructions: chew 1 gum every 1-2 hours maximum of 24 per 24 hours. amlodipine 5 mg tablet 5 mg PO HS lisinopril 10 mg tablet 10 mg PO HS estradiol [Estrace] 0.01 % (0.1 mg/gram) cream 1 g VAGINAL DIRECTED Qty: 42.5 1RF Rx Instructions: apply 1g vaginally 2x weekly trazodone 100 MG tablet 200 mg PO HS metformin 500 MG tablet extended release 24hr 1,000 mg PO HS Discontinued polyethylene glycol 3350 17 gram/dose powder 238 g PO ONCE Qty: 238 0RF Rx Instructions: take per colonoscopy instructions bisacodyl [Dulcolax (bisacodyl)] 5 mg tablet,delayed release (DR/EC) 5 mg PO ONCE Qty: 4 0RF Rx Instructions: take per colonoscopy instructions Discharge Instructions Additional Instructions: DSU Colonoscopy Post- Op Instructions Instructions for Everyone who is given Anesthesia: For your safety, please do the following for the next twenty-four (24) hours: *Do Not operate a motor vehicle (car, truck, motorcycle, etc.) *Do Not drink alcoholic beverages or use any recreational drugs for the first 24 hours or while taking pain medications. The medications in your body may have a reaction that can be dangerous. *Do Not make any important decisions or sign any important papers. Findings: x3 polyps diverticula Follow up: My office will send a letter in 2 to 3 weeks time, stating to what type of polyps they are and when we want you to repeat the colonoscopy. 1. No lifting over 20 pounds or strenuous activity for the first 24 hours after your procedure. After 24 hours there are no restrictions on your activity but you may feel fatigued for a few days. 2. After you arrive home you may have a light meal and return to your normal diet as you can tolerate it without feeling sick to your stomach. 3. You may have a bloated, gaseous feeling in your belly (abdomen) after a colonoscopy. Passing gas and belching will help. Walking or lying down on your left side with your knees flexed may relieve the discomfort. Call the office at [phone] (Office) or [phone] (Hospital) right away if you notice any of the following: a.Vomiting of blood or ?coffee ground stools?. b.Rectal bleeding 1Tbsp, blood clots or continuous bleeding. c.Severe belly (abdominal) pain. d.A hard distended belly (abdomen) and an inability to pass gas. 4. Please don?t expect to have a normal BM (bowel movement) for 2-3 days after your procedure. 5. If there are questions regarding the findings of your procedure, please contact your doctor 6. If you are unable to contact your doctor with a problem, contact the hospital at [phone]. 7. Continue all your regular medications unless directed otherwise. I understand the above instructions and have no questions. Signature of Patient or Adult Escort Name of Responsible Adult Escort Signature of Nurse Date/Time Stand Alone Forms: Anesthesia Discharge , Hesham Walker (DSU) Activity:: See above Diet:: See above Discharge Orders Discharge Orders: Discharge Order (Routine); Ordered 03/04/23 Ordered By: Grace Mccloud DS: Diagnosis Discharge Diagnosis (1) Tubular adenoma of colon:
[2023-03-04 06:15] VITALS: BP 111/79; PULSE 96; RESP 18; TEMP 36.3; O2SAT 95
[2023-03-04] MEDS: Lactated Ringers 1,000 ML 80 ML IV (06:57)
--- NOTE | 2023-03-04 07:13 | ANES.PREOP_ITS ---
General Info Date of Service Date Performed: 03/04/23 Height: 5 ft 6.14 in Weight: 80.6 kg Body Mass Index (BMI): 28.5 Surgical Procedure: Operation Date: 03/04/23 07:35 Proposed Procedure Side Surgeon addison Mccloud, DO Meds Allergies and Home Medications Allergies Allergy/AdvReac Type Severity Reaction Status Date / Time latex Allergy Intermediate Skin Rash Unverified 03/04/23 06:32 lactose Allergy Mild Verified 03/04/23 06:32 miconazole [From Monistat 3] Allergy Unknown increased Unverified 03/04/23 06:32 vaginal itching dial soap Allergy Intermediate itchy rash Uncoded 03/04/23 06:32 Home Medication Medication Instructions Recorded trazodone 100 mg tablet 200 mg PO HS 06/02/13 metformin 500 mg tablet,extended 1,000 mg PO HS 10/25/16 release 24hr montelukast 10 mg tablet 10 mg PO QHS 03/05/20 (Singulair) omeprazole 20 mg capsule,delayed 40 mg PO HS 03/05/20 release simvastatin 20 mg tablet 40 mg PO QHS 03/05/20 nicotine (polacrilex) 4 mg gum 4 mg buccal DIRECTED 12/05/20 (Nicorette) empagliflozin 25 mg tablet 25 mg PO DAILY 09/17/21 (Jardiance) amlodipine 5 mg tablet 5 mg PO HS 07/09/22 lisinopril 10 mg tablet 10 mg PO HS 07/09/22 fluconazole 150 mg tablet 150 mg PO ONCE #2 tabs 10/11/22 (Diflucan) estradiol 0.01% (0.1 mg/gram) 1 g vaginal DIRECTED #42.5 grams 02/14/23 vaginal cream (Estrace) metformin 500 mg tablet 500 mg PO .am 02/14/23 Current Visit Medications: Current Medications Generic Name Dose Route Start Last Admin Trade Name Freq PRN Reason Stop Dose Admin Hyoscyamine Sulfate 0.125 mg 03/04/23 07:59 Hyoscyamine 0.125 Mg Sl/Oral/Chew SL DIRECTED PRN Ringer's Solution 1,000 mls @ 80 mls/hr 03/04/23 06:00 03/04/23 06:57 IV 03/04/23 23:59 80 mls/hr INFUSION AB Administration IV Miscellaneous Supplies 1 each 03/04/23 06:00 Iv Access IV 03/04/23 23:59 DIRECTED [facility] Ondansetron HCl 4 mg 03/04/23 07:59 Ondansetron 4 Mg/2 Ml Vial IVP Q4H PRN PRN Nausea / Vomiting Sodium Chloride 0 ml 03/04/23 06:00 Normal Saline Flush 10 Ml Syr IV 03/04/23 23:59 PRN PRN Sodium Chloride 0 ml 03/04/23 06:00 Normal Saline 10 Ml Vial IJ 03/04/23 23:59 DIRECTED PRN Sterile Water 0 ml 03/04/23 06:00 Water,Injection,Sterile 10 Ml Vial IJ 03/04/23 23:59 DIRECTED PRN PFSH Active Problems Active Problems: Problem Status Onset Code Anxiety and depression F41.8 Panic attack F41.0 Hypertension I10 GERD (gastroesophageal reflux disease) K21.9 Diabetes E11.9 Asthma J45.909 Hyperlipidemia E78.5 Mass of right side of neck R22.1 Sensorineural hearing loss of both ears H90.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 Lichen sclerosus et atrophicus of the vulva N90.4 Yeast infection involving the vagina and surrounding area B37.3 Diastasis recti M62.08 Nicotine addiction F17.200 Medical History Medical History Alcohol abuse Colon adenomas Elevated liver function tests Heart murmur, systolic Lactose intolerance Lumbosacral disc herniation Lump in neck right side Proteinuria Sciatica Skin lesions Tobacco dependence Tubular adenoma of colon Tubular adenoma of colon (10/25/16) Surgical History Surgical History Colonoscopy - IV Sedation (10/25/16) tubular adenoma of the colon Hx of dilation and curettage remote Shoulder Manipulation Tobacco Smoking/Tobacco Use Status: Former Tobacco Use Alcohol Alcohol Intake: current Alcohol intake frequency: holidays/special occasions only Substance Use Substance use: Never Substance use type: does not use Prental History History 6 Para 5 Hx # Term Pregnancies Multiple births 1 Hx # Pregnancies Ectopic pregnancies AB induced Hx Number of Living Children AB spontaneous 2 Past Pregnancies Del. Date GA/Weeks # Preg Succ Route Wgt Sex Labor Lgth Anesth esia Location Prov Complic 04/30/87 40 No Yes vaginal [facility] 11/27/90 38 Yes Yes vaginal 2466.409 g Female Vir ginia other 01/08/94 40 No Yes vaginal Male [facility] 11/01/97 40 No Yes vaginal Female [facility] Delivery Date: 11/27/90 Last Updated by: Alyssa Garcia RN 1 male 1 female, fraternal twins 2nd twin forceps Delivery Date: 01/08/94 Last Updated by: Alyssa Garcia RN Sam Delivery Date: 11/01/97 Last Updated by: DRU Jarquin Vital Signs and Lab Results Vital Signs Most Recent Vital Signs in EMR: Most Recent Vital Signs Temp Pulse Resp BP Pulse Ox 36.3 C L 96 H 18 111/79 95 03/04/23 06:15 03/04/23 06:15 03/04/23 06:15 03/04/23 06:15 03/04/23 06:15 Point of Care Results Point of Care Results: Finger Stick Blood Glucose 191 03/04/23 06:45 Lab Results Blood Type / Crossmatch: No Data to Display Complete Blood Count: No Data to Display Complete Metabolic Panel: No Data to Display Liver Function Panel: No Data to Display Coagulation Panel: No Data to Display Cardiac Panel: No Data to Display Arterial Blood Gas: No Data to Display Venous Blood Gas: No Data to Display Pancreas Panel: No Data to Display Thyroid Panel: No Data to Display Infectious Disease: No Data to Display Blood Cultures: No Data to Display Toxicology Panel: No Data to Display Imaging and Studies Imaging and Studies Study information below may be from another EMR and interpreted by another provider. Please see original notes in EMR for more complete details. Echocardiogram Summary: Conclusion Left Ventricle : The left ventricle is normal size. Left ventricular systolic function is normal. There is normal left ventricular wall thickness. There is normal LV segmental wall motion. The left ventricular diastolic function is normal. LVEF is 54%. Right Ventricle : The right ventricle is normal size. The right ventricular systolic function is normal. The RVSP is 30 mmHg. Atria : The left atrium size is normal. The right atrium size is normal. Aortic Valve : Aortic valve is calcified. Aortic valve is probably trileaflet. Trace aortic regurgitation. Mild aortic stenosis. Peak aortic valve gradient is 34mmHg. Highest mean aortic valve gradient is 18mmHg. Calculated LEVY by the continuity equation is 1.25cm2. Mitral Valve : Mild mitral annular calcification. Trace to mild mitral regurgitation. No evidence of mitral valve stenosis. Great Vessels : The aortic root is normal in size. The ascending aorta is normal in size. Aortic arch is not well visualized. IVC is normal in size and collapses >50% with inspiration. 06/05/21 Anesthesia Assessment and Plan Anesthesia History Personal History: No History of Anesthesia Complications Family History: No Family History of Anesthesia Complications Exercise Tolerance Exercise Tolerance: Metabolic Equivalents<4 Pertinent Negatives Pertinent Negatives: No Symptoms of GERD, No Major Cardiovascular Symptoms or Complaints and No Major Pulmonary Symptoms or Complaints Cardiac & Pulmonary Exam Cardiac Exam: Normal S1/S2 Heart Sounds and Heart Murmur Present (present since age 16 per pt) Pulmonary Exam: Clear Bilateral Breath Sounds Implantable Cardiac Device Does patient have a Pacemaker or an ICD?: No Airway Exam Known Difficult Airway: No Mallampati Class: 3 Mouth Opening: Normal (> 3cm) Thyromental Distance: Greater than 3 cm Neck Range of Motion: Full ROM Neck Circumference: Normal Teeth Condition: Generalized Poor Dentition (right upper tooth loose) ASA Classification ASA Score: ASA 3 Emergency Case?: No NPO Status NPO Status: NPO Clears >2 hours, Solids >8 hours Anesthesia Plan Resuscitation Status: Full Code Anesthesia Technique: General Anesthesia Airway Planned: Natural Airway Monitors Used: Standard Monitors
[2023-03-04 07:18] VITALS: BMI 28.5
--- NOTE | 2023-03-04 07:45 | BOWEL_PTH ---
PATIENT: Annemarie Pizano LOC: [facility] U#:[id number] AGE/SX: 58/F ROOM: RE03/04/[address]: Grace Mccloud : 1965 BED: DIS: 03/04/2023 SPEC #: [id number] RECD: 03/04/23 12:52 STATUS: LI RE #: [id number] KATEY: 03/04/23 07:[address]: Grace Mccloud DEPT: Surgical Specimen RECD BY: Trinity Sy ENTERED: 03/04/23 12:53 SP TYPE: Bowel OTHR DR: Luisa Bell Tissues: 1 - BIOPSY BOWEL 2 - BIOPSY BOWEL Procedures: GROSS AND MICRO LEVEL 4 Comments: [id number]
[2023-03-04 08:12] VITALS: BP 120/80; PULSE 83; RESP 16; TEMP 36.4; O2SAT 94
--- NOTE | 2023-03-04 08:27 | W.ANESPOSTOP ---
Postoperative Evaluation Date, Time and Location Date Performed: 03/04/23 Time Performed: 08:27 Patient Location: Day Surgery Unit Vital Signs Most Recent Imported Vital Signs: Most Recent Vital Signs Temp Pulse Resp BP Pulse Ox 36.4 C L 83 16 120/80 94 03/04/23 08:12 03/04/23 08:12 03/04/23 08:12 03/04/23 08:12 03/04/23 08:12 Pain Score Most Recent Pain Score: Most Recent Pain Score Pain Level 0 03/04/23 08:12 Assessment Mental Status: Awake (Alert & Oriented to Patient Baseline) Airway and Respiratory Function: Patent airway with normal (patient baseline) respiratory exam Cardiovascular Function: Hemodynamically Stable Hydration Status: Adequately Hydrated Nausea & Vomiting: No Nausea or Vomiting Pain: Pain is tolerable per patient Peripheral Nerve Block: Patient did not receive a nerve block
[2023-03-04 08:38] VITALS: BP 120/64; PULSE 85; RESP 18; TEMP 36.6; O2SAT 94
--- NOTE | 2023-03-04 09:19 | W.PM.OP ---
Date of service: 03/04/23 Time of Service: 09:19 Operative Note Operative Note DATE OF PROCEDURE: 03/04/23 PRE-OP DIAGNOSIS: adenomatous polyp POST-OP DIAGNOSIS: other Refer to Anesthesia Record
--- NOTE | 2023-03-04 21:57 | W.COLOREPORT ---
Date of service: 03/04/23 Time of Service: 09:00 Colonoscopy Report Date of procedure: 03/04/23 Pre-op diagnosis general: A. polyps Post-op diagnosis procedure note: other (A. polyps and diverticula) Surgeon: Grace Mccloud Anesthesia Type: General:No Airway Estimated blood loss (mL): 1 Pathology: other Complications: None Disposition: same day Prep: Miralax/Dulcolax Retraction Time: 18 Procedure Description: After informed consent was obtained the patient was taken to the procedure room and placed in a left decubitous position. Monitors were applied and a time out was done. The patients name, date of , procedure, allergies to medications and metal in their body was reviewed. The patient was then sedated. Once sedated and comfortable a rectal exam was done. External exam was normal. Internal exam revealed a normal sphincter tone and no palpable masses. The scope was then introduced and retrofelexed. No internal hemorrhoids were identified. The scope was then advanced to the cecum w/out difficulty. The TI and appendiceal orifice were identified. The prep was BBPS 2 in all quadrants for a total of 618. The scope was then slowly retracted over minutes back into the rectum. She had 3 polyps that were removed today. All 3 polyps are less than 5 mm and flat and are removed with a cold biting forcep. There is 1 polyp at 40 cm and 2 polyps at 20 cm. All specimen is retrieved and no bleeding is noted. She has minor diverticula confined to the sigmoid colon with no signs of active bleeding or infection. The mucosa is otherwise pink and healthy with a normal vascular pattern. The scope was removed and the patient was woken up and taken back to Same day surgery in stable condition. The patient tolerated the procedure well and there were no immediate complications. Follow up: The patient should follow up in ~7 years unless they develop changes in bowel habits or other new gastrointestinal complaints.
== END 2023-03-04 09:24 | disposition home or self-care (01) ==
PROVIDERS: PCP Nurse Practitioner Family; Visit Provider Surgery
PROC: 0DJD8ZZ Inspection of Lower Intestinal Tract, Via Natural or Artificial Opening Endoscopic (ICD-10-PCS; CPT 45378; principal; 2023-03-04 07:30)
DX: Z12.11 Encounter for screening for malignant neoplasm of colon (principal); K63.5 Polyp of colon; K57.30 Diverticulosis of large intestine without perforation or abscess without bleeding; Z86.010 Personal history of colon polyps; E11.9 Type 2 diabetes mellitus without complications; F17.210 Nicotine dependence, cigarettes, uncomplicated
CPT/HCPCS: 45380; 88305; J2405

== ENCOUNTER 2023-07-29 15:16 | Outpatient (REF) | payer MEDICARE, MEDICAID, SELFPAY ==
[2023-07-29 19:17] LABS: ALT 100 U/L (14-59); AST 56 U/L (15-37); Alkaline Phosphatase 223 U/L (46-116); Anion Gap 9.4 mmol/L (3-11); BUN 10 mg/dL (7-18); Bilirubin, Total 0.4 mg/dL (0.2-1.0); CO2 28.6 mmol/L (21.0-32.0); CREATININE 0.9 mg/dL (0.55-1.02); Calcium 8.6 mg/dL (8.5-10.1); Calculated LDL 82 mg/dL (<100); Chloride 102 mmol/L (98-107); Cholesterol 184 mg/dL (<200); Estimated GFR 73.64 (mL/min/1.73m2); Glucose 208 mg/dL (74-106); HDL Cholesterol 46 mg/dL (40-60); Sodium 140 mmol/L (136-145); TSH 73.81 uIU/mL (0.36-3.74); Triglyceride 284 mg/dL (<150)
[2023-07-29 22:33] LABS: FREE T4 0.49 ng/dL (0.76-1.46)
== END 2023-07-29 15:17 | disposition home or self-care (01) ==
LOC: NCHCN 15:16
PROVIDERS: PCP Nurse Practitioner Family; Visit Provider Nurse Practitioner Family
DX: I10 Essential (primary) hypertension (principal); R94.5 Abnormal results of liver function studies; E78.5 Hyperlipidemia, unspecified; E04.8 Other specified nontoxic goiter; L29.2 Pruritus vulvae; R79.89 Other specified abnormal findings of blood chemistry
CPT/HCPCS: 80053; 80061; 84439; 84443; 87480; 87510; 87660

== ENCOUNTER → 2023-08-09 02:41 | Outpatient (CLI) | payer MEDICARE, MEDICAID, SELFPAY ==
--- NOTE | 2023-08-09 13:45 | DI.US_ITS ---
Exam(s) US THYROID EXAM: US THYROID CLINICAL HISTORY: ENLARGED THYROID ON EXAM, E04.9; ABNL THYROID FUNCTION STUDY, R94.6. TECHNIQUE: Ultrasound thyroid performed using standard protocol. COMPARISON: No exams were available for comparison FINDINGS: ISTHMUS: 9.6 mm RIGHT LOBE: Size: 5.6 x 2.7 x 2.3 cm Echogenicity: There is diffuse heterogeneity of the right lobe of the thyroid gland without discrete mass. Vascularity: Normal. Nodules: None. LEFT LOBE: Size: 4.6 x 2.5 x 2 cm Echogenicity: There is diffuse heterogeneity of the left lobe of the thyroid gland without discrete m ass. Vascularity: Normal. Nodules: None. OTHER FINDINGS: Sonographically benign-appearing lymph nodes bilaterally. The largest on the right m easures 2.4 cm. The largest on the left measures 0.9 cm. IMPRESSION: 1. No evidence of a thyroid nodule. 2. Diffuse heterogeneity of the thyroid gland which can be seen with diffuse thyroid disease such as thyroiditis. Please correlate clinically. DATA REPOSITORY:
== END ==
PROVIDERS: PCP Nurse Practitioner Family; Visit Provider Nurse Practitioner Family
DX: R94.6 Abnormal results of thyroid function studies
CPT/HCPCS: 76536

== ENCOUNTER 2023-08-30 19:31 | Outpatient (REF) | payer MEDICARE, MEDICAID, SELFPAY ==
[2023-08-30 18:59] LABS: Hemoglobin A1C 8.5 % (<5.7)
[2023-08-30 19:09] LABS: ALT 127 U/L (14-59); AST 70 U/L (15-37); Alkaline Phosphatase 281 U/L (46-116); Bilirubin, Direct 0.2 mg/dL (0.0-0.2); Bilirubin, Total 0.5 mg/dL (0.2-1.0); FREE T4 0.87 ng/dL (0.76-1.46); TSH 27.87 uIU/mL (0.36-3.74); Total Protein 7.7 g/dL (6.4-8.2)
== END 2023-08-30 19:32 | disposition home or self-care (01) ==
LOC: NCHCN 19:31
PROVIDERS: PCP Nurse Practitioner Family; Visit Provider Nurse Practitioner Family
DX: E11.9 Type 2 diabetes mellitus without complications (principal); E04.9 Nontoxic goiter, unspecified; R94.6 Abnormal results of thyroid function studies; R74.8 Abnormal levels of other serum enzymes
CPT/HCPCS: 80076; 83036; 84439; 84443

== ENCOUNTER 2023-09-30 16:15 | Outpatient (REF) | payer MEDICARE, MEDICAID, SELFPAY ==
[2023-09-30 15:10] LABS: ALT 96 U/L (14-59); AST 69 U/L (15-37); Albumin 3.8 g/dL (3.4-5.0); Alkaline Phosphatase 231 U/L (46-116); Bilirubin, Direct 0.2 mg/dL (0.0-0.2); Bilirubin, Total 0.6 mg/dL (0.2-1.0); FREE T4 1.43 ng/dL (0.76-1.46); TSH 2.96 uIU/mL (0.36-3.74); Total Protein 7.4 g/dL (6.4-8.2)
[2023-09-30 15:28] LABS: Hemoglobin A1C 7.9 % (<5.7)
== END 2023-09-30 16:16 | disposition home or self-care (01) ==
LOC: NCHCN 16:15
PROVIDERS: PCP Nurse Practitioner Family; Visit Provider Nurse Practitioner Family
DX: E11.9 Type 2 diabetes mellitus without complications (principal); E04.9 Nontoxic goiter, unspecified; R94.6 Abnormal results of thyroid function studies; R79.89 Other specified abnormal findings of blood chemistry
CPT/HCPCS: 80076; 83036; 84439; 84443

== ENCOUNTER 2023-12-19 18:15 | Outpatient (REF) | payer MEDICARE, MEDICAID, SELFPAY ==
[2023-12-19 20:17] LABS: ALT 87 U/L (14-59); AST 64 U/L (15-37); Albumin 3.5 g/dL (3.4-5.0); Alkaline Phosphatase 251 U/L (46-116); Anion Gap 11.9 mmol/L (3-11); BUN 11 mg/dL (7-18); Bilirubin, Total 0.7 mg/dL (0.2-1.0); CO2 26.1 mmol/L (21.0-32.0); CREATININE 0.9 mg/dL (0.55-1.02); Calcium 8.4 mg/dL (8.5-10.1); Chloride 99 mmol/L (98-107); Estimated GFR 73.64 (mL/min/1.73m2); FREE T4 1.18 ng/dL (0.76-1.46); Glucose 295 mg/dL (74-106); Sodium 137 mmol/L (136-145); TSH 3.55 uIU/mL (0.36-3.74); Total Protein 7.5 g/dL (6.4-8.2)
== END 2023-12-19 18:16 | disposition home or self-care (01) ==
LOC: NCHCN 18:15
PROVIDERS: PCP Nurse Practitioner Family; Visit Provider Nurse Practitioner Family
DX: E03.9 Hypothyroidism, unspecified (principal); R74.01 Elevation of levels of liver transaminase levels
CPT/HCPCS: 80053; 84439; 84443

== ENCOUNTER → 2023-12-26 03:03 | Outpatient (CLI) | payer MEDICARE, MEDICAID, SELFPAY ==
--- NOTE | 2023-12-26 | DI.US_ITS ---
Exam(s) US ABDOMEN LIMITED EXAM: US ABDOMEN LIMITED CLINICAL HISTORY: ELEVATED LIVER ENZYMES,R74.01 TECHNIQUE: Ultrasound abdomen performed using standard protocol. COMPARISON: CT NECK AND CHEST WITH CONTRAST from 04/07/2017 FINDINGS: There is no ascites LIVER: Liver size is slightly prominent and liver echotexture is hyperechoic indicating steatosis. T here are no discrete focal hepatic lesions identified. GALLBLADDER/BILIARY: There is a E shadowing gallstone noted measuring 1 cm size. Gallbladder is not distended nor edematous and there is no pericholecystic fluid. The common hepatic duct isapparently not visualized on this study, but there are no dilated tubular s tructures evident in the lakisha hepatis region. PANCREAS: There is no evidence of pancreatic mass nor dilatation of the pancreatic duct. RIGHT KIDNEY:No evidence of solid mass, calculus, nor hydronephrosis. No cortical cysts evident. IMPRESSION: 1. Cholelithiasis. There is a 1 cm shadowing gallstone in the gallbladder lumen. No gallbladder di stention or gallbladder wall edema. CBD is not visualized on this study but not obviously dilated. 2. Hepatic steatosis and hepatomegaly. No discrete focal hepatic lesions evident 3. There is no ascites. DATA REPOSITORY:
== END ==
PROVIDERS: PCP Nurse Practitioner Family; Visit Provider Nurse Practitioner Family
DX: R74.01 Elevation of levels of liver transaminase levels (principal); K80.00 Calculus of gallbladder with acute cholecystitis without obstruction; N20.0 Calculus of kidney
CPT/HCPCS: 76705

== ENCOUNTER → 2024-04-04 03:27 | Outpatient (CLI) | payer MEDICARE, MEDICAID, SELFPAY ==
--- NOTE | 2024-04-04 12:38 | DI.MAMMO_ITS ---
Exam(s) MAMMO SCREENING EXAM: MAMMO SCREENING CLINICAL HISTORY: Z12.39 Screening TECHNIQUE: Bilateral full field digital CC and MLO mammographic images were obtained with 3D tomosyn thesis and utilizing computer aided detection (CAD). COMPARISON: Available for comparison. FINDINGS: Masses/Architectural Distortion: None seen. Microcalcifications: No suspicious pleomorphic-type are seen. Skin Thickening/Nipple Retraction: None. IMPRESSION: 1. No significant interval change with no specific features of malignancy noted. 2. Unless there is more urgent need, screening mammography is recommended, as per [employer] guidelines. BI-RADS Category 1 - Negative Breast Density - Category B - Scattered areas of fibroglandular density Breast density category C or D implies that the patient has dense breast tissue. Dense breast tissue is very common and is not abnormal but dense breast tissue can make it harder to find cancer on a ma mmogram. Also, dense breast tissue may increase their breast cancer risk. This information about the result of the mammogram report was provided to the patient to raise their awareness. Use this report when you speak with the patient about their risks for breast cancer, which includes their family hist ory. At that time, you may recommend for more screening tests (Ultrasound or MRI) as they might be us eful based on their risk. A negative radiographic report should not delay biopsy if a dominant or clinically suspicious mass is present. Up to ten percent of cancers are not identified on mammography. A negative report may reinforce clinical impression. Adenosis and dense breasts may obscure an underlying neoplasm. False positive reports average 6 to 10%. Patient will receive a letter notifying them of these results.
== END ==
PROVIDERS: PCP Nurse Practitioner Family; Visit Provider Nurse Practitioner Family
DX: Z12.31 Encounter for screening mammogram for malignant neoplasm of breast (principal)
CPT/HCPCS: 77063; 77067

== ENCOUNTER 2024-05-03 13:02 | Outpatient (REF) | payer MEDICARE, MEDICAID, SELFPAY ==
[2024-05-03 19:37] LABS: Abs Immature Grans 0.06 10^3/uL (0.0-0.06); Absolute Basophil Count 0.07 10^3/uL (0.0-0.2); Absolute Eosinophil Count 0.27 10^3/uL (0.0-0.7); Absolute Lymphocyte Count 2.15 10^3/uL (1.2-3.4); Absolute Monocyte Count 0.51 10^3/uL (0.1-0.8); Absolute Neutrophil Count 5.76 10^3/uL (1.2-6.7); Basophils % 0.8 %; Eosinophils % 3.1 %; HCT 39.6 % (36.0-46.0); HGB 12.2 g/dL (11.2-15.7); Immature Grans % 0.7 %; Lymphocytes % 24.4 %; MCH 25.5 pg (27.0-33.0); MCHC 30.8 % (32.0-36.0); MCV 83 fL (80-95); MPV 11.1 fL (8.0-11.0); Monocytes % 5.8 %; Neutrophils % 65.2 %; Platelet Count 175 10^3/uL (130-400); RBC 4.79 10^6/uL (3.93-5.22); RDW 14.8 % (11.7-14.6); RDW-SD 44.3 fL; WBC 8.82 10^3/uL (4.4-10.8)
[2024-05-03 20:03] LABS: ALT 107 U/L (14-59); AST 87 U/L (15-37); Albumin 3.8 g/dL (3.4-5.0); Alkaline Phosphatase 316 U/L (46-116); Anion Gap 11.1 mmol/L (3-11); BUN 15 mg/dL (7-18); Bilirubin, Total 0.6 mg/dL (0.2-1.0); CO2 27.9 mmol/L (21.0-32.0); CREATININE 0.9 mg/dL (0.55-1.02); Calcium 8.3 mg/dL (8.5-10.1); Chloride 100 mmol/L (98-107); Estimated GFR 73.19 (mL/min/1.73m2); Glucose 254 mg/dL (74-106); Potassium 4.2 mmol/L (3.5-5.1); Sodium 139 mmol/L (136-145); TSH (W/Ref FT4) 7.07 uIU/mL (0.36-3.74); Total Protein 7.6 g/dL (6.4-8.2)
[2024-05-03 20:35] LABS: FREE T4 1.18 ng/dL (0.76-1.46)
== END 2024-05-03 13:03 | disposition home or self-care (01) ==
LOC: NCHCN 13:02
PROVIDERS: Visit Provider Nurse Practitioner Family
DX: E03.9 Hypothyroidism, unspecified (principal); I10 Essential (primary) hypertension; R74.01 Elevation of levels of liver transaminase levels
CPT/HCPCS: 80053; 84439; 84443; 85025

== ENCOUNTER → 2024-06-28 01:05 | Outpatient (CLI) | payer MEDICARE, MEDICAID, SELFPAY ==
--- NOTE | 2024-06-28 12:30 | DI.US_ITS ---
APPROVED REPORT EXAM: Comprehensive 2D, Doppler, and color-flow Echocardiogram Patient Location: Out-Patient Lead Clinical Research Coordinator: Ilan Mckenna RDCS (AE) Indications: Louder systolic murmur, uncontrolled diabetes Other Information Technically limited study due to body habitus. Conclusion Normal left ventricular wall thickness and chamber size. Ejection fraction is 60%. Wall motion is n ormal Normal right ventricular size and function Both atria are normal in size Aortic valve is sclerotic and probably trileaflet. There is mild to moderate aortic stenosis. Mean gradient is 22 mmHg. Calculated aortic valve area is 1.2 cm??. Trace aortic regurgitation Wall motion Left Ventricle Left ventricular cavity is normal The left ventricular systolic function is normal. The left ventricu lar ejection fraction is within the normal range. There is normal left ventricular wall thickness. Th ere is normal LV segmental wall motion. There is no ventricular septal defect visualized. LVEF is 60% . Right Ventricle The right ventricle is normal size. The right ventricular systolic function is normal. Atria The left atrium size is normal. The right atrium size is normal. The interatrial septum is intact wit h no evidence for an atrial septal defect. Aortic Valve The Aortic valve is sclerotic. Aortic valve is probably trileaflet. Mild to moderate aortic stenosis. Peak aortic valve gradient is 42.44 mmHg. Highest mean aortic valve gradient is 22.65 mmHg. Calculat ed LEVY by the continuity equation is 1.2 cm2. Trace aortic regurgitation. Mitral Valve Moderate mitral annular calcification. No evidence of mitral valve stenosis. Trace mitral regurgitati on. Tricuspid Valve The tricuspid valve is normal in structure. There is no tricuspid valve stenosis. Trace tricuspid reg urgitation. The RVSP is 12.0 mmHg. Pulmonic Valve The pulmonary valve is normal in structure. There is no pulmonic valvular stenosis. There is no pulmo bridgette valvular regurgitation. Great Vessels The aortic root is normal in size. The pulmonary artery is normal. The ascending aorta is normal in s ize. Aortic arch is normal in caliber. Pericardium There is no pericardial effusion. 2D Dimensions IVSD d PLAX 0.92 cm F: 0.6-1.0 Ao Root d 2.16 cm F: 2.7 - 3.3 LVPW d PLAX 0.90 cm F: 0.6 - 1.0 Ao Asc Diam d 2.47 cm F: 2.3 - 3.1 LVID d PLAX 3.59 cm F: 3.8 - 5.2 LVDs 2.48 cm F: 2.2 - 3.5 LV EF Teichholz 59.6 % FS 30.97 % LV EDV (Teich) 54.2 mL LV ESV (Teich) 21.9 mL Stroke Vol Index (Teich) 17.36 M-Mode TAPSE 2.18 cm (M/F) >1.7 Auto EF LV EDV A4C 62.9 mL LV EDV A2C 98.1 mL LV EDV BP 80.6 mL LV ESV A4C 27.2 mL LV ESV A2C 38.9 mL LV ESV BP 33.2 mL LVEF(%) A4C 56.7 % LVEF(%) A2C 60.4 % LVEF(%) BP 58.8 % LV SV A4C 35.7 ml LV SV A2C 59.2 ml LV SV BP 47.4 ml LV CO A4C 2.9 L/min LV CO A2C 5.2 L/min LV CO BP 4.1 L/min HR A4C 81.64 BPM HR A2C 87.59 BPM LV EDV Index (BP) LA Volume LA Length A4C 3.7 cm LA Length A2C 4.0 cm LA Area A4C s 7.10 cm2 LA Area A2C s 10.15 cm2 LA Vol A4C A-L 11.50 mL LA Vol A2C A-L 21.78 mL LA Vol Biplane A-L 16.4 mL LA Vol/BSA A4C A-L LA Vol/BSA A2C A-L LA Vol/BSA BP A-L 8.8 mL/m2 LA Vol A4C MOD 11.3 mL LA Vol A2C MOD 19.8 mL LA Vol BP MOD 15.5 mL RA Volume RA Area A4C 6.5 cm2 RA ESV A4C (A-L) 10.5mL RA Vol/BSA A4C A-L RA Length A4C 3.4 cm RA ESV A4C (MOD) 9.8mL LV Diastology MV E' medial 0.095 (>0.07 m/s) MV E Vmax 1.41 (0.4-1.3 m/s) MV E/E' MED 14.86 (<14) MV A Vmax 1.10 (0.4-1.3 m/s) MV E' lateral 0.100 (>0.1 m/s) E/A Ratio 1.3 MV E/E' LAT 14.07 (<14) MV E' Average 0.097 m/s MV E/E'(average) 14.45 Aortic Valve AoV Vmax 3.26 m/s LVOT Vmax 1.37 m/s AoV Peak Grad 57.3 mmHg LVOT Peak Grad 7.5 mmHg AoV Area (Vmax) 1.11 cm2 LVOT VTI 0.255 m AoV VTI 0.580 m LVOT Mean Grad 4.5 mmHg AoV Mean Aurelio. 2.23 m/s LVOT SV 67.14 mL AoV Mean Grad 22.6 mmHg LVOT Diam s 1.80 cm AoV Area (VTI) 1.16 cm2 AV Regurg Peak Gr. 42.44 mmHg Velocity Ratio 0.42 AR Decel [place] 3.9m/sec2 AR DT 1091 msec AR PHT 316 msec AR Vmax 4.25 m/s Mitral Valve MV DT 147 (160-240 msec) MV Vmax TIPS 1.34 m/s MV Mean Grad 4.0 (<2mmHg) MV VTI 0.351 m Pulmonary Valve PV Vmax 1.64 (0.5-1.5 m/s) RVOT Vmax 1.16 m/s PV Peak Grad 10.7 mmHg RVOT Peak Gr. 5.4 mmHg PV Mean Aurelio 1.06 m/s RVOT VTI 0.221 m PV Mean Grad 5.2 mmHg RVOT Mean Gr. 2.8 mmHg Tricuspid Valve RA Pressure 3.00 mmHg TR Vmax 1.50 m/s TR Peak Grad 8.9 mmHg RVSP (TR) 12.0 mmHg
== END ==
PROVIDERS: Visit Provider Nurse Practitioner Family
DX: R01.1 Cardiac murmur, unspecified (principal)
CPT/HCPCS: 93306

== ENCOUNTER 2024-08-02 16:04 | Outpatient (REF) | payer MEDICARE, MEDICAID, SELFPAY ==
[2024-08-02 17:00] LABS: FREE T4 1.42 ng/dL (0.76-1.46)
[2024-08-02 17:29] LABS: Hemoglobin A1C 8.5 % (<5.7)
== END 2024-08-02 16:05 | disposition home or self-care (01) ==
LOC: NCHCN 16:04
PROVIDERS: PCP Nurse Practitioner Family; Visit Provider Nurse Practitioner Family
DX: E11.9 Type 2 diabetes mellitus without complications (principal)
CPT/HCPCS: 83036; 84439; 84443

== ENCOUNTER 2024-08-07 01:06 | Outpatient (CLI) | payer MEDICARE, MEDICAID, SELFPAY ==
--- NOTE | 2024-08-07 11:03 | DI.RAD_ITS ---
Exam(s) XR ARTHRITIS SERIES EXAM: XR ARTHRITIS SERIES CLINICAL HISTORY: PAIN LT AND RT HAND,M79.641,M79.642,MOSTLY THUMB,SUSPECT TENDONITIS OR. TECHNIQUE: 2D digital imaging was performed. Two views of both hands. COMPARISON: No exams were available for comparison FINDINGS: BONES: No acute fracture is present. No erosive or productive bony lesions are seen. JOINTS: No dislocation present. Severe degenerative changes on the left 1st carpal metacarpal joint. [id number] degenerative changes of the interphalangeal joints of the fingers and thumb bilate rally. Mild degenerative changes at the right 1st carpometacarpal joint.. SOFT TISSUE: Normal. IMPRESSION: Degenerative changes, greatest at the left 1st carpometacarpal joint. DATA REPOSITORY: RADIATION DOSE DELIVERED:
== END 2024-08-07 01:26 ==
PROVIDERS: PCP Nurse Practitioner Family; Visit Provider Nurse Practitioner Family
DX: M18.12 Unilateral primary osteoarthritis of first carpometacarpal joint, left hand (principal)
CPT/HCPCS: 73120

== ENCOUNTER 2024-11-05 15:23 | Outpatient (CLI) | payer MEDICARE, MEDICAID, SELFPAY ==
[2024-11-05 16:14] LABS: Calculated LDL 58 mg/dL (<100); Cholesterol 164 mg/dL (<200); HDL Cholesterol 47 mg/dL (40-60); Triglyceride 295 mg/dL (<150)
[2024-11-06 19:32] LABS: ALT 56 U/L (14-59); AST 37 U/L (15-37); Albumin 3.7 g/dL (3.4-5.0); Alkaline Phosphatase 251 U/L (46-116); Anion Gap 12.1 mmol/L (3-11); BUN 14 mg/dL (7-18); Bilirubin, Total 0.47 mg/dL (0.2-1.0); CO2 26.9 mmol/L (21.0-32.0); CREATININE 0.9 mg/dL (0.55-1.02); Calcium 8.2 mg/dL (8.5-10.1); Chloride 103 mmol/L (98-107); Estimated GFR 73.19 (mL/min/1.73m2); Glucose 288 mg/dL (74-106); Sodium 142 mmol/L (136-145); TSH (W/Ref FT4) 0.11 uIU/mL (0.36-3.74); Total Protein 7.8 g/dL (6.4-8.2)
[2024-11-06 19:48] LABS: FREE T4 1.46 ng/dL (0.76-1.46)
== END 2024-11-05 15:24 | disposition home or self-care (01) ==
LOC: LBO 15:25
PROVIDERS: PCP Nurse Practitioner Family; Visit Provider Nurse Practitioner Family
DX: E78.5 Hyperlipidemia, unspecified (principal); E04.9 Nontoxic goiter, unspecified
CPT/HCPCS: 36415; 80053; 80061; 84439; 84443

== ENCOUNTER 2024-11-16 11:45 | Emergency (ER) | payer MEDICARE, MEDICAID, SELFPAY ==
[2024-11-16] VITALS (17 sets, daily range): BP systolic 148–175; BP diastolic 56–81; PULSE 100–120; RESP 5–20; TEMP 37.8; O2SAT 93–100
[2024-11-16] MEDS: methylPREDNISolone SUCC 125 MG VIAL IVP (12:20)
[2024-11-16] MEDS: Albuterol/Ipratropium 3 ML UPD VIAL UPD (12:21)
[2024-11-16 12:22] LABS: Abs Immature Grans 0.09 10^3/uL (0.0-0.06); Absolute Eosinophil Count 0.16 10^3/uL (0.0-0.7); Absolute Lymphocyte Count 1.25 10^3/uL (1.2-3.4); Absolute Neutrophil Count 8.39 10^3/uL (1.2-6.7); Basophils % 0.6 %; Eosinophils % 1.5 %; HCT 39.5 % (36.0-46.0); HGB 12.4 g/dL (11.2-15.7); Immature Grans % 0.8 %; Lymphocytes % 11.5 %; MCH 25.4 pg (27.0-33.0); MCHC 31.4 % (32.0-36.0); MCV 81 fL (80-95); MPV 10.5 fL (8.0-11.0); Monocytes % 8.5 %; Neutrophils % 77.1 %; Platelet Count 171 10^3/uL (130-400); RBC 4.88 10^6/uL (3.93-5.22); RDW 15.2 % (11.7-14.6); RDW-SD 44.6 fL; WBC 10.88 10^3/uL (4.4-10.8)
[2024-11-16 12:31] LABS: Absolute Basophil Count 0.07 10^3/uL (0.0-0.2); Absolute Monocyte Count 0.92 10^3/uL (0.1-0.8)
[2024-11-16 12:41] LABS: ALT 89 U/L (14-59); AST 55 U/L (15-37); Albumin 3.8 g/dL (3.4-5.0); Alkaline Phosphatase 307 U/L (46-116); Anion Gap 10.8 mmol/L (3-11); BUN 9 mg/dL (7-18); Bilirubin, Total 0.94 mg/dL (0.2-1.0); CO2 26.2 mmol/L (21.0-32.0); Calcium 8.3 mg/dL (8.5-10.1); Chloride 99 mmol/L (98-107); Estimated GFR 64.49 (mL/min/1.73m2); Glucose 276 mg/dL (74-106); Potassium 3.9 mmol/L (3.5-5.1); Sodium 136 mmol/L (136-145); Total Protein 8.3 g/dL (6.4-8.2)
--- NOTE | 2024-11-16 13:42 | DI.RAD_ITS ---
Exam(s) XR CHEST 2V PA LATERAL EXAM: XR CHEST 2V PA LATERAL CLINICAL HISTORY: cough TECHNIQUE: 2D digital imaging was performed. Two views. COMPARISON: CR LEFT SHOULDER COMPLETE from 03/26/[address] CHEST LUNG CANCER SCREEN from 09/11/2020 FINDINGS: HEART: Normal size. Aorta: Not dilated. PULMONARY VASCULATURE: Normal. MEDIASTINUM: Unremarkable. LUNGS: Clear. PLEURAL SPACE: No pleural effusion or pneumothorax. BONE:Old humeral head fracture deformity. SOFT TISSUES: Unremarkable. IMPRESSION: No acute abnormality. DATA REPOSITORY: RADIATION DOSE DELIVERED:
--- NOTE | 2024-11-16 14:15 | ED.GENADUL_ITS ---
Discharge Plan Disposition Patient Disposition: Home Condition: Stable Discharge Details Clinical Impression: Asthma, Bronchitis, URI (upper respiratory infection) Primary Care Provider: [place] [facility] ED Provider: Mario Shin Home Meds and New Rx's Prescriptions: New promethazine 6.25 mg/5 mL syrup 12.5 mg PO Q6H PRN (Reason: cough) Qty: 120 0RF benzonatate 100 mg capsule 100 mg PO TID PRN (Reason: cough) Qty: 30 0RF doxycycline hyclate 100 mg capsule 100 mg PO BID 5 Days Qty: 10 0RF prednisone 20 mg tablet 40 mg PO DAILY 5 Days Qty: 10 0RF No Action Trulicity 4.5 mg/0.5 mL pen injector 4.5 mg subcut QWEEK glipizide 10 mg tablet extended release 24hr 10 mg PO BID levothyroxine 150 mcg capsule 137 mcg PO DAILY simvastatin 20 mg tablet 40 mg PO QHS omeprazole 20 mg capsule,delayed release(DR/EC) 40 mg PO HS montelukast [Singulair] 10 mg tablet 10 mg PO QHS nicotine (polacrilex) [Nicorette] 4 mg Gum 4 mg BUCCAL DIRECTED Rx Instructions: chew 1 gum every 1-2 hours maximum of 24 per 24 hours. amlodipine 5 mg tablet 5 mg PO HS lisinopril 10 mg tablet 10 mg PO HS estradiol [Estrace] 0.01 % (0.1 mg/gram) cream 1 g VAGINAL DIRECTED Qty: 42.5 1RF Rx Instructions: apply 1g vaginally 2x weekly trazodone 100 MG tablet 50 mg PO HS prazosin 1 mg capsule 1 mg PO QHS Patient Comments: TAKE ONE CAPSULE BY MOUTH AT BEDTIME FOR 7 DAYS; THEN INCREASE TO TWO CAPSULES BY MOUTH AT BEDTIME UNTIL FOLLOW UP mirtazapine 45 mg tablet 45 mg PO DAILY insulin glargine [Lantus Solostar U-100 Insulin] 100 unit/mL (3 mL) insulin pen SUBCUT Discharge Instructions Instructions: Upper respiratory infection in adults - Discharge instructions Additional Instructions: Your blood work and chest x-ray look pretty good today We will treat you for bronchitis and atypical pneumonia You will be given antibiotics to take by mouth for 5 days You will also be given steroids and inhaler to use. Take 2 puffs with a spacer every 4 hours You have also been provided cough medication to help with your symptoms Make sure that you are drinking lots of water and getting rest and follow-up with your PCP as needed. HPI General Date/Time Provider Initiated Documentation: 11/16/24 11:48 . Limitations to Documentation: no limitations . Information obtained by: patient . HPI Narrative: 59-year-old female with past medical history of hypertension, asthma, prior s moker presents for evaluation of URI symptoms for the last 3 weeks. She reports that she has been having a cough. Occasionally productive of clear mucus. Was evaluated by her PCP 4 days ago for similar symptoms and viral testing at that time is negative. She has been taking [id number] medications without much relief. She does not use breathing treatments at home. She denies any known f ever. Related Data Home Medications ?Medication ?Instructions ?Recorded ?Confirmed trazodone 100 mg tablet 50 mg PO HS 06/02/13 11/16/24 montelukast 10 mg tablet 10 mg PO QHS 03/05/20 11/16/24 (Singulair) omeprazole 20 mg capsule,delayed 40 mg PO HS 03/05/20 11/16/24 release simvastatin 20 mg tablet 40 mg PO QHS 03/05/20 11/16/24 nicotine (polacrilex) 4 mg gum 4 mg buccal DIRECTED 12/05/20 11/16/24 (Nicorette) amlodipine 5 mg tablet 5 mg PO HS 07/09/22 11/16/24 lisinopril 10 mg tablet 10 mg PO HS 07/09/22 11/16/24 estradiol 0.01% (0.1 mg/gram) 1 g vaginal DIRECTED #42.5 grams 02/14/23 11/16/24 vaginal cream (Estrace) dulaglutide 4.5 mg/0.5 mL 4.5 mg subcut QWEEK 07/26/24 11/16/24 subcutaneous pen injector (Trulicity) glipizide 10 mg tablet, extended 10 mg PO BID 07/26/24 11/16/24 release 24 hr levothyroxine 150 mcg capsule 137 mcg PO DAILY 07/26/24 11/16/24 benzonatate 100 mg capsule 100 mg PO TID PRN cough #30 caps 11/16/24 doxycycline hyclate 100 mg capsule 100 mg PO BID 5 days #10 caps 11/16/24 insulin glargine 100 unit/mL (3 unit subcut 11/16/24 mL) subcutaneous pen (Lantus Solostar U-100 Insulin) mirtazapine 45 mg tablet 45 mg PO DAILY 11/16/24 11/16/24 prazosin 1 mg capsule 1 mg PO QHS 11/16/24 11/16/24 prednisone 20 mg tablet 40 mg (2 x 20 mg) PO DAILY 5 days 11/16/24 #10 tabs promethazine 6.25 mg/5 mL oral 12.5 mg (10 mL) PO Q6H PRN cough 11/16/24 syrup #120 mL Previous Rx's ?Medication ?Instructions ?Recorded estradiol 0.01% (0.1 mg/gram) 1 g vaginal DIRECTED #42.5 grams 02/14/23 vaginal cream (Estrace) benzonatate 100 mg capsule 100 mg PO TID PRN cough #30 caps 11/16/24 doxycycline hyclate 100 mg capsule 100 mg PO BID 5 days #10 caps 11/16/24 prednisone 20 mg tablet 40 mg (2 x 20 mg) PO DAILY 5 days 11/16/24 #10 tabs promethazine 6.25 mg/5 mL oral 12.5 mg (10 mL) PO Q6H PRN cough 11/16/24 syrup #120 mL Allergies Allergy/AdvReac Type Severity Reaction Status Date / Time latex Allergy Intermediate Skin Rash Unverified 11/16/24 11:51 lactose Allergy Mild Diarrhea Verified 11/16/24 11:51 miconazole (From Monistat 3) Allergy Unknown increased Unverified 11/16/24 11:51 vaginal itching dial soap Allergy Intermediate itchy rash Uncoded 11/16/24 11:51 General Stated Complaint: RespSymp BENTLEY: 2 Exam Narrative Exam Narrative: Review of Systems: All systems reviewed & are unremarkable except as noted in HPI and below Well-developed, no acute distress Afebrile NCAT RRR no murmur Unlabored respiratory effort no tachypnea or hypoxia, decreased air movement bilaterally with an occasional expiratory wheeze Nondistended abdomen Extremities w/o edema Course Vital Signs Vital signs: Vital Signs Temperature 37.8 C H 11/16/24 11:46 Pulse 120 H 11/16/24 11:46 Respiratory Rate 20 11/16/24 11:46 Blood Pressure 164/81 H 11/16/24 11:46 Pulse Oximetry 95 11/16/24 11:46 Temperature 37.8 C H 11/16/24 12:04 Temperature Source Oral 11/16/24 12:04 Pulse 100 H 11/16/24 12:04 Respiratory Rate 16 11/16/24 12:21 Respiratory Effort Normal, Non-Labored 11/16/24 12:04 Respiratory Depth Normal 11/16/24 12:04 Blood Pressure 175/72 H 11/16/24 12:04 Blood Pressure Position Supine 11/16/24 12:04 Pulse Oximetry 97 11/16/24 12:21 Oxygen Delivery Method Room Air 11/16/24 12:21 Oxygen Flow Rate 0 11/16/24 12:21 Pain Level 10 11/16/24 12:04 Lab/Test Results Lab/Test Results: Laboratory Tests Range/Units 11/16/24 12:14 WBC (4.4-10.8) 10^3/uL 10.88 H RBC (3.93-5.22) 10^6/uL 4.88 Hgb (11.2-15.7) g/dL 12.4 Hct (36.0-46.0) % 39.5 MCV (80-95) fL 81 MCH (27.0-33.0) pg 25.4 L MCHC (32.0-36.0) % 31.4 L RDW (11.7-14.6) % 15.2 H Plt Count (130-400) 10^3/uL 171 MPV (8.0-11.0) fL 10.5 Immature Gran % % 0.8 Neutrophils % % 77.1 Lymphocytes % % 11.5 Monocytes % % 8.5 Eosinophils % % 1.5 Basophils % % 0.6 Nucleated RBC % (0.0-0.3) % 0.0 Absolute Neutrophils (1.2-6.7) 10^3/uL 8.39 H Absolute Lymphocytes (1.2-3.4) 10^3/uL 1.25 Absolute Monocytes (0.1-0.8) 10^3/uL 0.92 H Absolute Eosinophils (0.0-0.7) 10^3/uL 0.16 Absolute Basophils (0.0-0.2) 10^3/uL 0.07 Sodium (136-145) mmol/L 136 Potassium (3.5-5.1) mmol/L 3.9 Chloride (98-107) mmol/L 99 Carbon Dioxide (21.0-32.0) mmol/L 26.2 Anion Gap (3-11) mmol/L 10.8 BUN (7-18) mg/dL 9 Creatinine (0.55-1.02) mg/dL 1.0 Est GFR (CKD-EPI 2020) (mL/min/1.73m2) 64.49 Glucose (74-106) mg/dL 276 H Calcium (8.5-10.1) mg/dL 8.3 L Total Bilirubin (0.2-1.0) mg/dL 0.94 AST (15-37) U/L 55 H ALT (14-59) U/L 89 H Alkaline Phosphatase (46-116) U/L 307 H Total Protein (6.4-8.2) g/dL 8.3 H Albumin (3.4-5.0) g/dL 3.8 Medical Decision Making Emergent evaluation of cough and URI symptoms. Initial differential includes viral illness, pneumonia, bronchospasm. Patient does have prior history of smoking and has used inhalers in the past but does not have access to any right now. She has had some diminished air movement so I will give steroids and bronchodilator treatment and reassess. Will check lab work and chest x-ray. Viral testing is negative today. Lab work reviewed mild leukocytosis without anemia. She has hyperglycemia with which are consistent with prior. Her chest x-ray does not reveal a focal consolidation. And some nonspecific elevation in her LFTs. Patient did have improvement after breathing treatment. At this time I feel she is stable for discharge home. Will treat with antibiotics given her smoking history and duration of cough. Will choose doxycycline. Will give cough medications for supportive care. Will also treat with bronchodilator and steroids at home. She was provided an inhaler with spacer to go home with the remainder of the prescriptions were sent to the pharmacy. Strict return precautions advised. Recommend close follow-up with PCP. Quality:SDOH Health Related Social Needs: No Data to Display PFSH All Active Problems URI (upper respiratory infection) (Acute) Bronchitis (Acute) Anxiety and depression (Chronic) Panic attack (Chronic) Hypertension (Chronic) GERD (gastroesophageal reflux disease) (Chronic) Diabetes (Chronic) Asthma (Chronic) Hyperlipidemia (Acute) Mass of right side of neck (Acute) Dr. Chi Stable to smaller, with FNA consistent with Warthin's tumor or intraparotid lymph node. Sensorineural hearing loss of both ears (Acute) Perimenopausal atrophic vaginitis (Acute) Lichen sclerosus et atrophicus of the vulva (Acute) Yeast infection involving the vagina and surrounding area (Acute) Diastasis recti (Acute) Nicotine addiction (Acute) Patient is stop smoking cigarettes but uses nicotine gum daily instead Medical History Hypothyroidism Tubular adenoma of colon (10/25/16) Lumbosacral disc herniation Proteinuria Tobacco dependence Heart murmur, systolic Lactose intolerance Lump in neck right side Skin lesions Tubular adenoma of colon Sciatica Elevated liver function tests Alcohol abuse Colon adenomas Surgical History History of colonoscopy (~02/2023) Hx of dilation and curettage remote Shoulder Manipulation Colonoscopy - IV Sedation (10/25/16) tubular adenoma of the colon Social History Smoking/Tobacco Use Status: Former Tobacco Use Quit Date: 05/21/20 Smoking risk assessment performed?: Yes Alcohol Intake: current Alcohol Intake frequency: holidays/special occasions only Drug use: Never Substance use type: does not use Do you feel safe at home: Yes Do you feel safe in your relationship?: Yes Female Reproductive History Menstrual Age of Menarche: 13 Menopause type: natural Date of menopause: 11/21/12 History History 6 Para 5 Hx # Term Pregnancies Multiple births 1 Hx # Pregnancies Ectopic pregnancies AB induced Hx Number of Living Children AB spontaneous 2 Past Pregnancies Del. Date GA/Weeks # Preg Succ Route Wgt Sex Labor Lgth Anesth esia Location Prov Complic 04/30/87 40 No Yes vaginal [facility] 11/27/90 38 Yes Yes vaginal 2466.409 g Female Vir ginia other 01/08/94 40 No Yes vaginal Male [facility] 11/01/97 40 No Yes vaginal Female [facility] Delivery Date: 11/27/90 Last Updated by: Alyssa Garcia RN 1 male 1 female, fraternal twins 2nd twin forceps Delivery Date: 01/08/94 Last Updated by: Alyssa Garcia RN Sam Delivery Date: 11/01/97 Last Updated by: DRU Jarquin
[2024-11-16] MEDS: Albuterol HFA 8 GM 60 PUFF INH IH (14:17)
== END 2024-11-16 14:24 | disposition home or self-care (01) ==
PROVIDERS: Emergency Provider Emergency Medicine; PCP Nurse Practitioner Family
DX: J40 Bronchitis, not specified as acute or chronic (principal); J06.9 Acute upper respiratory infection, unspecified; I10 Essential (primary) hypertension
CPT/HCPCS: 36415; 80053; 94640; 96374; 99284; 71046; 85025; J2919; J7620

== ENCOUNTER 2024-11-17 09:42 | Emergency (ER) | payer MEDICARE, MEDICAID, SELFPAY ==
[2024-11-17 09:43] VITALS: BP 163/71; PULSE 117; RESP 20; TEMP 36.2; O2SAT 96
[2024-11-17 10:06] LABS: Carboxyhemoglobin 2.2 %
[2024-11-17 10:21] VITALS: BP 141/67; PULSE 106; RESP 18; O2SAT 95
[2024-11-17 10:24] VITALS: RESP 16
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
== END 2024-11-17 10:27 | disposition home or self-care (01) ==
PROVIDERS: Emergency Provider Emergency Medicine; PCP Nurse Practitioner Family
DX: R05.1 Acute cough (principal); Z77.29 Contact with and (suspected) exposure to other hazardous substances; J40 Bronchitis, not specified as acute or chronic
CPT/HCPCS: 36415; 82375; 99282; 99283

== ENCOUNTER 2024-11-27 17:04 | Outpatient (REF) | payer MEDICARE, MEDICAID, SELFPAY ==
[2024-11-27 20:01] LABS: ALT 82 U/L (14-59); AST 42 U/L (15-37); Albumin 3.8 g/dL (3.4-5.0); Alkaline Phosphatase 205 U/L (46-116); Anion Gap 9.2 mmol/L (3-11); BUN 9 mg/dL (7-18); Bilirubin, Total 0.59 mg/dL (0.2-1.0); CO2 29.8 mmol/L (21.0-32.0); CREATININE 0.8 mg/dL (0.55-1.02); Calcium 8.5 mg/dL (8.5-10.1); Chloride 103 mmol/L (98-107); Glucose 211 mg/dL (74-106); Potassium 4.2 mmol/L (3.5-5.1); Sodium 142 mmol/L (136-145); Total Protein 7.3 g/dL (6.4-8.2); Vitamin D 25 Total 16.3 ng/mL (30-100)
[2024-11-27 20:17] LABS: GGT 483 U/L (5-55)
[2024-11-28 19:27] LABS: Parathyroid Hormone,Intact 43.3 pg/mL (19.0-88.0)
== END 2024-11-27 17:05 | disposition home or self-care (01) ==
LOC: NCHCN 17:04
PROVIDERS: PCP Nurse Practitioner Family; Visit Provider Nurse Practitioner Family
DX: E83.51 Hypocalcemia (principal)
CPT/HCPCS: 80053; 82306; 82977; 83970

== ENCOUNTER 2024-11-28 13:16 | Outpatient (REF) | payer MEDICARE, MEDICAID, SELFPAY ==
[2024-11-28 17:29] LABS: Microalb ug/mg Crea 100.7 ug/mg Cr
== END 2024-11-28 13:17 | disposition home or self-care (01) ==
LOC: NCHCN 13:16
PROVIDERS: PCP Nurse Practitioner Family; Visit Provider Nurse Practitioner Family
DX: E11.9 Type 2 diabetes mellitus without complications (principal); L29.3 Anogenital pruritus, unspecified
CPT/HCPCS: 82043; 82570; 87480; 87510; 87660

== ENCOUNTER 2024-12-21 00:16 | Outpatient (CLI) | payer MEDICARE, MEDICAID, SELFPAY ==
--- NOTE | 2024-12-21 11:01 | DI.CTLCSR_ITS ---
Exam(s) CT CHEST LUNG CANCER SCREEN EXAM: CT CHEST LUNG CANCER SCREEN CLINICAL HISTORY: Screening, ex-cigarette smoker, Z87.891-personal h/o nicotine dependence TECHNIQUE: Imaging Protocol: Axial computed tomography images with coronal and sagittal reformatted images were created and reviewed. Lung Computer Aided Detection (CAD) was utilized. COMPARISON: CT CT CHEST LUNG CANCER SCREEN from 09/11/2020 FINDINGS: Tracheobronchial tree: Patent where visualized. No bronchiectasis. Pulmonary parenchyma: No consolidation or dominant measurable mass. No architectural distortion. Lung Nodules: None. Mediastinum and Jennifer: No dominant adenopathy or fluid collection. The esophagus is unremarkable. Thyroid gland: Unremarkable. Lymph nodes: Unremarkable. Pleura: No effusion or pneumothorax. Heart: The heart is not dilated. Mild coronary artery calcification is present. Mitral calcification is present. No pericardial effusion. Aorta: Thoracic aorta non-dilated.Atherosclerotic calcification is present. Upper abdomen: Unremarkable. Soft Tissues: Unremarkable. Bones: Within normal limits. IMPRESSION: No suspicious nodules. Lung RADS Cat 1 - Negative: No nodules and definitely benign nodules Lung-RADS 1.0 CATEGORIES: Category 0 - Prior chest CT exam(s) being located for comparison. Category 1 - Annual screening in 12 months. No nodules or definitely benign nodules. Category 2 - Annual screening in 12 months. Benign appearance. Nodules with low likelihood of becomin g active cancer. Category 3 - 6-month follow-up. Probably benign. Short-term follow-up suggested. Nodules with low lik elihood of becoming active cancer. Category 4A - 3-month follow-up and CT/PET if >8 mm in size. Suspicious finding. Findings which requi re additional testing. Category 4B - Findings which require additional testing and tissue sampling. Suspicious finding. Category 4X - Category 3 or 4 nodules with additional features or imaging findings that increases the suspicion of malignancy. Modifier S- Potentially clinically significant finding. (Non lung cancer) RADIATION DOSE DELIVERED: 30.55mGy.cm Total DLP 30.55mGy.cmTotal DLP DATA REPOSITORY: All CT scans at this facility are submitted to the National Radiology Data Registry (NRDR) Dose Index Registry (DIR) with the [employer] ([employer]). RADIATION OPTIMIZATION: All CT scans at this facility use at least one of these dose optimization te chniques: automated exposure control; mA and/or kV adjustment per patient size (includes targeted exa ms where dose is matched to clinical indication); or iterative reconstruction.
== END 2024-12-21 00:36 ==
LOC: DI 00:16
PROVIDERS: PCP Nurse Practitioner Family; Visit Provider Nurse Practitioner Family
DX: Z12.2 Encounter for screening for malignant neoplasm of respiratory organs (principal); Z87.891 Personal history of nicotine dependence
CPT/HCPCS: 71271

== ENCOUNTER 2024-12-27 18:31 | Emergency (ER) | payer MEDICARE, MEDICAID, SELFPAY ==
[2024-12-27 18:47] VITALS: BP 161/79; PULSE 95; RESP 20; TEMP 37.4; O2SAT 94
--- NOTE | 2024-12-27 19:00 | DI.RAD_ITS ---
Exam(s) XR FOOT LT COMPLETE EXAM: XR FOOT LT COMPLETE CLINICAL HISTORY: stubbed L foot. TECHNIQUE: 2D digital imaging was performed. Three views. COMPARISON: CR RIGHT FOOT COMPLETE from 07/01/2009 FINDINGS: BONES: Question nondisplaced fractures of the proximal phalanges of the 3rd and 4th toes no bony dest ructive lesion is seen. Heel spurs. JOINTS: No dislocation present. Mild degenerative changes. Pes cavus. SOFT TISSUE: Lower extremity edema. IMPRESSION: Question of fractures of the proximal phalanges of the 3rd and 4th toes. Clinical correlation recomm end DATA REPOSITORY: RADIATION DOSE DELIVERED:
--- NOTE | 2024-12-27 19:09 | ED.GENADUL_ITS ---
Discharge Plan Disposition Patient Disposition: Home Condition: Stable Discharge Details Clinical Impression: Swelling of left foot Primary Care Provider: [place] De [facility] ED Provider: Lobito Dick Home Meds and New Rx's Prescriptions: Continued Trulicity 4.5 mg/0.5 mL pen injector 4.5 mg subcut QWEEK glipizide 10 mg tablet extended release 24hr 10 mg PO DAILY simvastatin 20 mg tablet 40 mg PO QHS omeprazole 20 mg capsule,delayed release(DR/EC) 40 mg PO HS montelukast [Singulair] 10 mg tablet 10 mg PO QHS nicotine (polacrilex) [Nicorette] 4 mg Gum 4 mg BUCCAL DIRECTED Rx Instructions: chew 1 gum every 1-2 hours maximum of 24 per 24 hours. amlodipine 5 mg tablet 5 mg PO HS lisinopril 10 mg tablet 10 mg PO HS estradiol [Estrace] 0.01 % (0.1 mg/gram) cream 1 g VAGINAL DIRECTED Qty: 42.5 1RF Rx Instructions: apply 1g vaginally 2x weekly levothyroxine 137 mcg tablet 137 mcg PO DAILY Patient Comments: TAKE ONE TABLET BY MOUTH EVERY MORNING 30 MIN. PRIOR TO EATING ANYTHING prazosin 1 mg capsule 1 mg PO QHS Patient Comments: TAKE ONE CAPSULE BY MOUTH AT BEDTIME FOR 7 DAYS; THEN INCREASE TO TWO CAPSULES BY MOUTH AT BEDTIME UNTIL FOLLOW UP mirtazapine 45 mg tablet 45 mg PO DAILY insulin glargine [Lantus Solostar U-100 Insulin] 100 unit/mL (3 mL) insulin pen 10 unit SUBCUT DAILY Patient Comments: haven't started yet, to increase in 2 weeks to 13 Units, pt doesn't have needles, unsure of use. Discharge Instructions Instructions: Foot Sprain ED Additional Instructions: You were seen in the emergency department for your left foot swelling of unknown cause, you may have had a minor sprain when he stubbed your toe, there appears to be no sign of infection or blood clot. If you have a minor sprain and have not been elevating and icing your foot have been up on your feet every day that would cause some mild swelling. Please take Tylenol and ibuprofen as needed for swelling, please return to the emergency department for severe increase in redness, severe increase in swelling, calf pain or swelling, skin changes, redness, fever, red streaking up the leg. Referrals: [place] De Dios [Primary Care Provider] - Discharge Data Discharge Date/Time-TO BE ENTERED AT DEPARTURE: 12/27/24 20:22 HPI General Date/Time Provider Initiated Documentation: 12/27/24 18:57 . HPI Narrative: 59 year-old female presents to ED today by POV/ambulating with a chief complaint of stubbed L pinky toe a few weeks ago, has very mild swelling to her L foot. Quality described as subtle swelling, unclear what her concern is whether it be blood clot or other pathology, no radiation to schwarz erythema, fluctuant swelling, sharp pain with ambulation, calf pain, medial thigh pain, calf swelling, inability to ambulate. Severity is described as 4/10. Palliating f actors include nothing specific attempted. Provoking factors include nothing specific. Patient not anticoagulated. Related Data Home Medications ?Medication ?Instructions ?Recorded ?Confirmed montelukast 10 mg tablet 10 mg PO QHS 03/05/20 12/27/24 (Singulair) omeprazole 20 mg capsule,delayed 40 mg PO HS 03/05/20 12/27/24 release simvastatin 20 mg tablet 40 mg PO QHS 03/05/20 12/27/24 nicotine (polacrilex) 4 mg gum 4 mg buccal DIRECTED 12/05/20 12/27/24 (Nicorette) amlodipine 5 mg tablet 5 mg PO HS 07/09/22 12/27/24 lisinopril 10 mg tablet 10 mg PO HS 07/09/22 12/27/24 estradiol 0.01% (0.1 mg/gram) 1 g vaginal DIRECTED #42.5 grams 02/14/23 12/27/24 vaginal cream (Estrace) dulaglutide 4.5 mg/0.5 mL 4.5 mg subcut QWEEK 07/26/24 12/27/24 subcutaneous pen injector (Trulicity) glipizide 10 mg tablet, extended 10 mg PO DAILY 07/26/24 12/27/24 release 24 hr insulin glargine 100 unit/mL (3 10 unit subcut DAILY 11/16/24 12/27/24 mL) subcutaneous pen (Lantus Solostar U-100 Insulin) mirtazapine 45 mg tablet 45 mg PO DAILY 11/16/24 12/27/24 prazosin 1 mg capsule 1 mg PO QHS 11/16/24 12/27/24 levothyroxine 137 mcg tablet 137 mcg PO DAILY 11/17/24 12/27/24 Previous Rx's ?Medication ?Instructions ?Recorded estradiol 0.01% (0.1 mg/gram) 1 g vaginal DIRECTED #42.5 grams 02/14/23 vaginal cream (Estrace) Allergies Allergy/AdvReac Type Severity Reaction Status Date / Time latex Allergy Intermediate Skin Rash Verified 12/27/24 18:45 lactose Allergy Mild Diarrhea Verified 12/27/24 18:45 miconazole (From Monistat 3) Allergy Unknown increased Verified 12/27/24 18:45 vaginal itching dial soap Allergy Intermediate itchy rash Uncoded 12/27/24 18:45 General Stated Complaint: Orthopedic BENTLEY: 4 Review of Systems All systems reviewed & are unremarkable except as noted in HPI and below Exam Narrative Exam Narrative: GENERAL APPEARANCE: Well-nourished, non-toxic, awake and alert, atraumatic, no acute distress. SKIN: Warm, pink, dry, intact, without rashes/lesions/ulcerations. HEAD: Normocephalic, atraumatic, normal hair distribution for gender/age. EYES: Normal conjunctiva, no exudates on lids/lashes. ENT: Nares patent, no circumoral cyanosis, no facial swelling NECK: Supple, trachea midline, painless cervical ROM. LUNGS/CHEST: Non-labored respirations, normal A/P diameter, symmetrical expansion, no chest wall deformity HEART (CV/PV): Regular rate, L dorsalis pedis pulse 2+, no peripheral edema, no JVD. ABDOMEN: Soft, non-distended, no guarding. MSK: Normal ROM, no swelling/deformity to bilateral UEs or LEs, moving all extremities without weakness, no cyanosis, spine midline without tenderness, normal curvature, mildly swollen left foot, non-pitting, healing contusion at base of L 5th toe, Balbir's negative, no unilateral calf swelling, no skin changes NEURO: Mental Status AAOx4 - alert to person, place, time, events No facial droop, no forehead involvement. Motor: No focal weakness - strength 5/5 in bilateral UEs and LEs, proximal and distal, symmetric. Sensory: sensation intact to light touch globally. Gait normal: patient ambulated without ataxia into ED room. PSYCH: euthymic, cooperative, pleasant, appropriate speech Course Vital Signs Vital signs: Vital Signs Temperature 37.4 C 12/27/24 18:47 Pulse 95 H 12/27/24 18:47 Respiratory Rate 20 12/27/24 18:47 Blood Pressure 161/79 H 12/27/24 18:47 Pulse Oximetry 94 12/27/24 18:47 Temperature 37.4 C 12/27/24 18:47 Temperature Source Tympanic 12/27/24 18:47 Pulse 95 H 12/27/24 18:47 Respiratory Rate 20 12/27/24 18:47 Blood Pressure 161/79 H 12/27/24 18:47 Blood Pressure Position Sitting 12/27/24 18:47 Pulse Oximetry 94 12/27/24 18:47 Oxygen Delivery Method Room Air 12/27/24 18:47 Oxygen Flow Rate 0 12/27/24 18:47 Pain Level 5 12/27/24 18:47 Medical Decision Making This dictation utilizes [id number] dictation software and may contain unedited grammatical errors. 59 year-old female presents to ED today by POV/ambulating with a chief complaint of stubbed L pinky toe a few weeks ago, has very mild swelling to her L foot. Quality described as subtle swelling, unclear what her concern is whether it be blood clot or other pathology, no radiation to schwarz erythema, fluctuant swelling, sharp pain with ambulation, calf pain, medial thigh pain, calf swelling, inability to ambulate. Severity is described as 4/10. Palliating factors include nothing specific attempted. Provoking factors include nothing specific. Patients' medical history: Hypothyroidism, tobacco dependence, history of alcohol abuse, diabetes mellitus, panic attack, anxiety and depression. Family and social history: noncontributory. Pertinent exam findings / vital signs include very mild subtle swelling to the left foot diffusely with healing contusion to the left pinky toe, no skin changes, no fluctuant swellings, no calf tenderness, Homans negative, no medial thigh tenderness, no unilateral leg. Differential / pathologies of concern include contusion to left foot. Diagnostic studies of: -XR L foot-no acute pathology. Interventions of: -None. ED Course/Assessment/Plan: 59-year-old female stubbed her toe a few weeks ago noted some mild swelling to her left foot is barely noticeable on exam and is nonpitting, she has no signs of blood clot, I am not sure what is causing her very mild swelling it could be that she had a mild sprain and has been up and active and not taking care of it with RICE protocol. I reassured her that there is no infectious or clot pathology seen on exam and no bony abnormalities on x-ray, strict return criteria for any exacerbation of swelling especially unilateral leg swelling skin changes, any redness spreading up the leg and fever. Findings not consistent with infection, clot, pitting pedal edema, severe swelling. Disposition of swelling of left foot. Patient verbalized understanding of the plan and return to ED criteria and engaged in shared decision making. Medical Records Medical records reviewed: Yes I reviewed the patient's medical records. Imaging Data Radiologic Study: Attestation: I personally reviewed and interpreted this imaging study as follows: Imaging: X-Ray Radiologist's impression: Exam: XR Left Foot Exam date and time: 12/27/2024 19:39 Age: 59 years old Clinical indication: Left foot pain after stubbed TECHNIQUE: Imaging protocol: Radiologic exam of the left foot. Views: 3 or more views. COMPARISON: No relevant prior studies available. FINDINGS: Bones/joints: The bones are demineralized. Mild first metatarsal phalangeal degerative changes. Chronic hammertoe deformities. Plantar calcaneal spur. Posterior calcaneal spur. Pes cavus. No acute fracture or subluxation. Soft tissues: Normal. IMPRESSION: No acute bony pathology. Dictated and Authenticated by: Terra Garcia MD. Quality:SDOH Health Related Social Needs: No Data to Display PFSH All Active Problems (Updated 12/27/24 @ 20:12 by CHANDA Johnson) Swelling of left foot (Acute) Anxiety and depression (Chronic) Panic attack (Chronic) Hypertension (Chronic) GERD (gastroesophageal reflux disease) (Chronic) Diabetes (Chronic) Asthma (Chronic) Hyperlipidemia (Acute) Mass of right side of neck (Acute) Dr. Chi Stable to smaller, with FNA consistent with Warthin's tumor or intraparotid lymph node. Sensorineural hearing loss of both ears (Acute) Perimenopausal atrophic vaginitis (Acute) Lichen sclerosus et atrophicus of the vulva (Acute) Yeast infection involving the vagina and surrounding area (Acute) Diastasis recti (Acute) Nicotine addiction (Acute) Patient is stop smoking cigarettes but uses nicotine gum daily instead Medical History Hypothyroidism Tubular adenoma of colon (10/25/16) Lumbosacral disc herniation Proteinuria Tobacco dependence Heart murmur, systolic Lactose intolerance Lump in neck right side Skin lesions Tubular adenoma of colon Sciatica Elevated liver function tests Alcohol abuse Colon adenomas Surgical History History of colonoscopy (~02/2023) Hx of dilation and curettage remote Shoulder Manipulation Colonoscopy - IV Sedation (10/25/16) tubular adenoma of the colon Social History Smoking/Tobacco Use Status: Former Tobacco Use Quit Date: 05/21/20 Smoking risk assessment performed?: Yes Alcohol Intake: current Alcohol Intake frequency: holidays/special occasions o nly Drug use: Never Substance use type: does not use Housing: apartment Do you feel safe at home: Yes Do you feel safe in your relationship?: Yes Female Reproductive History Menstrual Age of Menarche: 13 Menopause type: natural Date of menopause: 11/21/12 History History 6 Para 5 Hx # Term Pregnancies Multiple births 1 Hx # Pregnancies Ectopic pregnancies AB induced Hx Number of Living Children AB spontaneous 2 Past Pregnancies Del. Date GA/Weeks # Preg Succ Route Wgt Sex Labor Lgth Anesth esia Location Prov Complic 04/30/87 40 No Yes vaginal [facility] 11/27/90 38 Yes Yes vaginal 2466.409 g Female Vir ginia other 01/08/94 40 No Yes vaginal Male [facility] 11/01/97 40 No Yes vaginal Female [facility] Delivery Date: 11/27/90 Last Updated by: Alyssa Garcia RN 1 male 1 female, fraternal twins 2nd twin forceps Delivery Date: 01/08/94 Last Updated by: Alyssa Garcia RN Sam Delivery Date: 11/01/97 Last Updated by: DRU Jarquin
--- NOTE | 2024-12-27 20:00 | DI.VRAD_ITS ---
PROCEDURE INFORMATION: Exam: XR Left Foot Exam date and time: 12/27/2024 19:39 Age: 59 years old Clinical indication: Left foot pain after stubbed TECHNIQUE: Imaging protocol: Radiologic exam of the left foot. Views: 3 or more views. COMPARISON: No relevant prior studies available. FINDINGS: Bones/joints: The bones are demineralized. Mild first metatarsal phalangeal degerative changes. Chronic hammertoe deformities. Plantar calcaneal spur. Posterior calcaneal spur. Pes cavus. No acute fracture or subluxation. Soft tissues: Normal. IMPRESSION: No acute bony pathology. Dictated and Authenticated by: Terra Garcia MD. Orderin Mayelin Robin MD
[2024-12-27 20:22] VITALS: BP 170/69; PULSE 87; RESP 16; O2SAT 97
== END 2024-12-27 20:22 | disposition home or self-care (01) ==
PROVIDERS: Emergency Provider Physician Assistant; PCP Nurse Practitioner Family
DX: R22.42 Localized swelling, mass and lump, left lower limb (principal)
CPT/HCPCS: 99283; 73630

== ENCOUNTER 2025-03-14 16:20 | Outpatient (REF) | payer MEDICARE, MEDICAID, SELFPAY ==
[2025-03-14 20:01] LABS: ALT 67 U/L (14-59); AST 41 U/L (15-37); Alkaline Phosphatase 254 U/L (46-116); Anion Gap 9.4 mmol/L (3-11); BUN 14 mg/dL (7-18); Bilirubin, Total 0.6 mg/dL (0.2-1.0); CO2 29.6 mmol/L (21.0-32.0); CREATININE 0.9 mg/dL (0.55-1.02); Calcium 8.9 mg/dL (8.5-10.1); Chloride 104 mmol/L (98-107); Estimated GFR 72.73 (mL/min/1.73m2); Glucose 187 mg/dL (74-106); Potassium 4.1 mmol/L (3.5-5.1); Sodium 143 mmol/L (136-145); TSH 3.85 uIU/mL (0.36-3.74); Total Protein 7.3 g/dL (6.4-8.2)
== END 2025-03-14 16:21 | disposition home or self-care (01) ==
LOC: NCHCN 16:20
PROVIDERS: PCP Nurse Practitioner Family; Visit Provider Nurse Practitioner Family
DX: E03.9 Hypothyroidism, unspecified (principal); I10 Essential (primary) hypertension
CPT/HCPCS: 80053; 84439; 84443

== ENCOUNTER → 2025-04-09 12:56 | Outpatient (BNVA) | payer MEDICARE, MEDICAID, SELFPAY | PROVIDERS: PCP Nurse Practitioner Family; Referring Provider Nurse Practitioner Family; Visit Provider Podiatrist | DX: E11.42 Type 2 diabetes mellitus with diabetic polyneuropathy (principal); I73.9 Peripheral vascular disease, unspecified; L60.3 Nail dystrophy; L60.2 Onychogryphosis; R09.89 Other specified symptoms and signs involving the circulatory and respiratory systems | CPT/HCPCS: 11719; 99213 ==

== ENCOUNTER 2025-07-25 18:28 | Outpatient (REF) | payer MEDICARE, MEDICAID, SELFPAY ==
[2025-07-25 20:07] LABS: COMMENT (LAB VIEW ONLY) 229.48 mg/dL
[2025-07-25 20:08] LABS: Microalb ug/mg Crea 50.9 ug/mg Cr
== END 2025-07-25 18:29 | disposition home or self-care (01) ==
LOC: NCHCN 18:28
PROVIDERS: PCP Nurse Practitioner Family
DX: E11.9 Type 2 diabetes mellitus without complications (principal); Z79.4 Long term (current) use of insulin
CPT/HCPCS: 82043; 82570

== ENCOUNTER → 2025-08-12 13:19 | Outpatient (BNVA) | payer MEDICARE, MEDICAID, SELFPAY | PROVIDERS: PCP Nurse Practitioner Family; Referring Provider Nurse Practitioner Family; Visit Provider Podiatrist | DX: L60.3 Nail dystrophy (principal); M79.671 Pain in right foot; M79.672 Pain in left foot; E11.42 Type 2 diabetes mellitus with diabetic polyneuropathy; I73.89 Other specified peripheral vascular diseases; L85.8 Other specified epidermal thickening; L60.2 Onychogryphosis; R09.89 Other specified symptoms and signs involving the circulatory and respiratory systems | CPT/HCPCS: 11056; 11719; 11720 ==

== ENCOUNTER 2025-10-01 14:06 | Outpatient (REF) | payer MEDICARE, MEDICAID, SELFPAY ==
[2025-10-01 16:39] LABS: ALT 56 U/L (10-49); AST 41 U/L (<34); Albumin 4.5 g/dL (3.4-5.0); Alkaline Phosphatase 202 U/L (46-116); Anion Gap 5.7 mmol/L (3-11); BUN 15 mg/dL (9-23); Bilirubin, Total 0.80 mg/dL (0.2-1.2); CO2 34.3 mmol/L (20.0-31.0); Calcium 8.2 mg/dL (8.3-10.6); Chloride 104 mmol/L (98-107); Cholesterol 144 mg/dL (<200); Glucose 146 mg/dL (74-106); HDL Cholesterol 50 mg/dL (>40); Potassium 3.9 mmol/L (3.5-5.1); Sodium 144 mmol/L (136-145); Total Protein 7.1 g/dL (5.7-8.2)
[2025-10-01 17:01] LABS: HCT 37.3 % (36.0-46.0); HGB 11.6 g/dL (11.2-15.7); MCH 26.1 pg (27.0-33.0); MCHC 31.1 % (32.0-36.0); MCV 84 fL (80-95); MPV 11.1 fL (8.0-11.0); Platelet Count 155 10^3/uL (130-400); RBC 4.45 10^6/uL (3.93-5.22); RDW 16.0 % (11.7-14.6); RDW-SD 49.1 fL; WBC 8.76 10^3/uL (4.4-10.8)
[2025-10-01 19:46] LABS: Hemoglobin A1C 7.9 % (<5.7)
[2025-10-08 14:37] LABS: 25-Hydroxy D Total 28 ng/mL
== END 2025-10-01 14:07 | disposition home or self-care (01) ==
LOC: NCHCN 14:06
PROVIDERS: PCP Nurse Practitioner Family
DX: Z01.89 Encounter for other specified special examinations (principal); Z13.1 Encounter for screening for diabetes mellitus; Z13.6 Encounter for screening for cardiovascular disorders
CPT/HCPCS: 80053; 80061; 82306; 85027; 83036

== ENCOUNTER → 2025-11-08 00:09 | Outpatient (CLI) | payer MEDICARE, MEDICAID, SELFPAY ==
--- NOTE | 2025-11-08 | DI.MAMMO_ITS ---
Exam(s) MAMMO SCREENING EXAM: MAMMO SCREENING CLINICAL HISTORY: SCREENING, Z12.31 TECHNIQUE: Bilateral full field digital CC and MLO mammographic images were obtained with 3D tomosynthesis and utilizing computer aided detection (CAD). COMPARISON: Comparison is made with prior examinations. FINDINGS: Masses/Architectural Distortion: No suspicious masses or areas of architectural distortion are present. Microcalcifications: No suspicious pleomorphic-type are seen. Skin Thickening/Nipple Retraction: None. IMPRESSION: 1. No significant interval change with no specific features of malignancy noted. 2. Unless there is more urgent need, screening mammography is recommended, as per [employer] guidelines. BI-RADS Category 1 - Negative Breast Density - Category B - There are scattered areas of fibroglandular density. Breast density Category C or D implies that the patient has dense breast tissue. Dense breast tissue can make it harder to find cancer on a mammogram. Dense breast tissue is also associated with an increased risk of breast cancer. This information about the result of the mammogram report was provided to the patient to raise their awareness. Use this report when you speak with the patient about their risks for breast cancer, which includes their family history. At that time, you may recommend additional screening tests (Ultrasound or MRI) as these tests may add significant information. A negative radiographic report should not delay biopsy if a dominant or clinically suspicious mass is present. Up to ten percent of cancers are not identified on mammography. A negative report may reinforce clinical impression. Adenosis and dense breasts may obscure an underlying neoplasm. False positive reports average 6 to 10%. Patient will receive a letter notifying them of these results.
== END ==
LOC: DI 00:09
PROVIDERS: PCP Nurse Practitioner Family
DX: Z12.31 Encounter for screening mammogram for malignant neoplasm of breast (principal)
CPT/HCPCS: 77063; 77067